=== PATIENT | male | born 1970 | race Caucasian/White ===

== ENCOUNTER 2016-03-11 07:00 | Day surgery (SDC) | payer MEDICAID, MEDICARE ==
[~2016-03-11 07:00] MED LIST: ACET325T51 PO; GLPZ5T PO; HYDR-4003 PO; INSLIS SUBQ; LISI40TA PO; METF-495 PO; PRAV20TA2 PO
--- NOTE | 2016-03-11 09:56 | NUR ---
No show for 03/11/16 appointment: Patient called. 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 Message left requesting call back.
--- NOTE | 2016-03-11 11:26 | NUR ---
Patient arrived for appointment today. TPA not needed: Patient arrived ambulatory to [facility] [place] room 245. PICC line evaluated by IV therapy. PICC line draws blood with no problem. Dr. Jimenez called and notified. No need for TPA infusion to de clot. Patient discharged home ambulatory in stable condition. Infusion solutions to continue with home care.
[2016-06-07] MEDS ORDERED: GLIP10TA10 PO (15:53)
[2016-06-07] MEDS ORDERED: PRAV20TA2 PO (15:53)
[2016-06-07] MEDS ORDERED: LISI40TA PO (15:53)
[2016-06-07] MEDS ORDERED: METF-496 PO (15:53)
[2016-06-07] MEDS ORDERED: INSLIS SUBQ (15:53)
== END 2016-03-20 23:59 ==
LOC: MOCO 07:00
PROVIDERS: ATTEND Podiatrist
DX: M86.9 Osteomyelitis, unspecified (principal); Z53.8 Procedure and treatment not carried out for other reasons

== ENCOUNTER 2016-03-25 15:42 | Day surgery (SDC) | payer MEDICARE, MEDICAID ==
--- NOTE | 2016-03-25 16:49 | NUR ---
PICC line discontinued: Orders received to discontinue PICC line. Patient arrived ambulatory to [facility] [place] room 241. PICC line d/c'd by IV therapy. Discharged home ambulatory in stable condition.
[2016-06-07] MEDS ORDERED: METF-496 PO (15:53)
[2016-06-07] MEDS ORDERED: LISI40TA PO (15:53)
[2016-06-07] MEDS ORDERED: INSLIS SUBQ (15:53)
[2016-06-07] MEDS ORDERED: GLIP10TA10 PO (15:53)
[2016-06-07] MEDS ORDERED: PRAV20TA2 PO (15:53)
== END 2016-03-25 23:59 | disposition home or self-care (01) ==
LOC: MOCO 15:42
PROVIDERS: ATTEND Podiatrist
DX: M86.8X7 Other osteomyelitis, ankle and foot (principal)

== ENCOUNTER 2016-06-11 07:18 | Day surgery (SDC) | payer MEDICARE, MEDICAID ==
[~2016-06-11] VITALS: Ht 203.2 cm; Wt 128.6 kg
[~2016-06-11 07:18] MED LIST changes: -ACET325T51 PO; +GLIP10TA10 PO; -GLPZ5T PO; -HYDR-4003 PO; -METF-495 PO; +METF-496 PO; +Vancomycin Dose per Pharmacist XX ONE; +Vancomycin Inj 2,000 MG in 0.9% Sodium Chloride 500 ML IV ONE
[2016-06-11] MEDS ORDERED: fentaNYL-PF 50 mCg/mL 2 mL Inj ONE (07:19)
[2016-06-11] MEDS: Lactated Ringer's 1,000 ML IV SCH ×2 (07:26→09:11)
[2016-06-11 07:36] VITALS: BP 156/89; PULSE 95; RESP 16; O2SAT 96
[2016-06-11] MEDS ORDERED: Insulin LISPRO 300 Unit/3 mL Inj ONE (08:09)
[2016-06-11] MEDS ORDERED: Insulin LISPRO 300 Unit/3 mL Inj SUBQ ONE (08:25)
[2016-06-11] MEDS ORDERED: Bupivacaine 0.5%/EPI 50 mL Inj INFILTRATE ONE (09:30)
[2016-06-11] MEDS ORDERED: Bupivacaine-MPF 0.5% 30 mL Inj INFILTRATE ONE (09:30)
[2016-06-11] MEDS ORDERED: fentaNYL-PF 50 mCg/mL 2 mL Inj IVPUSH PRN (09:40)
[2016-06-11] MEDS ORDERED: Lactated Ringer's 500 ML IV PRN (09:40)
[2016-06-11] MEDS ORDERED: Dexamethasone 4 mg/mL Inj IVPUSH PRN (09:40)
[2016-06-11] MEDS ORDERED: Ondansetron 2 mg/mL 2 mL Inj IVPUSH PRN (09:40)
[2016-06-11] MEDS ORDERED: Lactated Ringer's 1,000 ML IV SCH (09:40)
[2016-06-11] MEDS ORDERED: EPHEDrine Sulfate 50 mg/mL Inj IVPUSH PRN (09:40)
[2016-06-11] MEDS ORDERED: Labetalol 5 mg/mL 4 mL Inj IV PRN (09:40)
[2016-06-11] MEDS ORDERED: HYDROmorphone 1 mg/mL Inj IVPUSH PRN (09:40)
[2016-06-11] MEDS ORDERED: MetoCLOpramide 5 mg/mL 2 mL Inj IVPUSH PRN (09:40)
[2016-06-11] MEDS ORDERED: Phenylephrine 10,000 mCg/mL Inj IVPUSH PRN (09:40)
[2016-06-11] MEDS ORDERED: Atropine 0.4 mg/mL Inj IVPUSH PRN (09:40)
--- NOTE | 2016-06-11 09:40 | PCM.HPANE ---
Patient Data Surgeon Admitting Provider: Attending Provider:Giselle Jimenez DPM Primary Care Physician:Criss Woods MD Other Provider:PierreocAzaleaAnderson Anesthesia Reason for Visit Left Foot Diabetic Ulcer W/Deformity Ht/WT & BMI Height (Feet): 6 Height (Inches): 8 Weight (Kilograms): 128.6 Body Mass Index 31.00 Allergies Coded Allergies: Penicillins (Verified Allergy, Severe, SWELLING, 01/31/16) amoxicillin (Verified Allergy, Severe, swelling, 01/31/16) lidocaine (Verified Allergy, Severe, Anaphylaxis, 01/31/16) chlorhexidine (Verified Allergy, Unknown, 01/31/16) Uncoded Allergies: CHLOROPREP (Adverse Reaction, Severe, SKIN REACTION, 11/13/15) Past Anesthesia History Anesthesia History: Denies:: Anesthesia Reactions, Malignant Hyperthermia Diabetes History Hx Diabetes?: Yes Type of Diabetes: Type II Glycemic Control: Insulin & Oral Medication Current Bedside Blood Glucose: 280 MRSA MRSA: Yes (hx of, prone to) Medications Hypertension Medication: Yes Home Meds Incl Beta Brian: No Reported Medications Metformin ER 1,000 Mg Tablet1,000 Mg PO BID Ref 0 06/07/16 Pravastatin 20 Mg Cisktz47 Mg PO DAILY Ref 0 06/07/16 Glipizide 10 Mg Fhsfhe01 Mg PO BID 30 Days 06/07/16 Lisinopril 40 Mg Leueop67 Mg PO DAILY 30 Days Ref 0 06/07/16 Discontinued Reported Medications Insulin Human Lispro (HumaLOG U100 Insulin Vial)100 Unit/Ml Unit1 Unit SUBQ prn PRN sliding scale BS #1 VIAL Ref 0 Check blood sugars before meals and at bedtime. Use correction factor only before meals. Blood Sugar Lispro Correction: <151, 0 units; 151-175, 1 unit; 176-200, 2 units; 201-225, 3 units; 226-250, 4 units; 251-275, 5 units; 276-300, 6 units; 301-325, 7 units; 326-350, 8 units; 351-375, 9 units; 376-400, 10 units; >400, 12 units. 06/07/16 Acetaminophen 325 Mg Rythmt113 Mg PO Q4H PRN AD Ref 0 12/27/15 Hydrocodone-Acetaminophen 5-325 mg 1 Each Tablet1-2 Tablet PO Q6H PRN For Pain Ref 0 11/13/15 Pravastatin 20 Mg Wlddtp01 Mg PO DAILY 01/30/15 Lisinopril 40 Mg Beamtg01 Mg PO DAILY 01/30/15 Discontinued Scripts Insulin Human Lispro (HumaLOG U100 Insulin Vial)100 Unit/Ml Unit SUBQ WMHS 30 Days Check blood sugars before meals and at bedtime. Use correction factor only before meals. Blood Sugar Lispro Correction: <151, 0 units; 151-175, 1 unit; 176-200, 2 units; 201-225, 3 units; 226-250, 4 units; 251-275, 5 units; 276-300, 6 units; 301-325, 7 units; 326-350, 8 units; 351-375, 9 units; 376-400, 10 units; >400, 12 units. Prov:Radhames Oglesby DO 02/06/16 Metformin ER 500 Mg Tablet1,000 Mg PO BID #60 Prov:Junior Butler MD 12/30/15 Glipizide 5 Mg Mbjfem69 Mg PO BID #60 TABLET Prov:Junior Butler MD 12/30/15 History History of ENT Problems?: No HEENT History: Denies:: Abnormal Airway Cataracts Difficult Intubation Dysphagia Glaucoma Hearing Problem Sinus Problem TMJ Denture Type: None Teeth Condition: Within Normal Limits Hx of Heart Problems?: Yes Cardiovascular History: Positive for:: Hypertension ( hyperlipidemia) Denies:: Cardiac Surgery Chest Pain Congestive Heart Failure Edema (left foot swollen related to infection) Heart Murmur Irregular Heartbeat Pacemaker Thrombophlebitis Valvular Heart Disease Hx of Respiratory Problem?: No Respiratory History: Positive for:: Pneumonia (hx of) Denies:: Asthma COPD Emphysema Oxygen Administration Tuberculosis Use of C-PAP Machine Hx Neurologic Problems?: Yes Neurological History: Positive for:: CVA Headaches (sometimes) Denies:: Alzheimer's Disease Dementia Dizziness Parkinson's Disease Seizures Hx of GI Problems?: No Hx of Problems?: No Genitourinary History: Denies:: Kidney Stones Urinary Tract Infection Male Hx: Denies:: Prostate Problems Scrotal Mass Testicular Surgery Skin History: Positive for:: History Skin Disorders? (recurrent foot ulcers) Denies:: Pressure Ulcers Hx Musculoskeletal Problems?: Yes Musculoskeletal History: Positive for:: Back Injury (strain muscle hx) Musculoskeletal Trauma (left foot current admission problem- hx multiple foot surgery) Denies:: Joint Replacement Hx of Psycho/Social Problems?: No Hx Surgeries?: Yes (ORIF RT LEG,PARTIAL AMPUTATION TO 1ST & 2ND TOE., 3/4 AMPUTATION TO 3RD TOE) Hx Any Other Health Problems?: Yes Other History: Positive for:: Endocrine Disease (Diabetes Type 2, insulin dependent.) Hospitalization (for diabetic foot infections) Denies:: Cancer Thyroid Disease History Blood Transfusions: Denies:: Blood Transfuse Reaction Blood Transfusions Hx Diabetes: YesBedside Blood Glucose: 280 Hx Alcohol Use: YesHx Substance Use: No Smoking Status: Former Smoker Have You Smoked inLast 12 mo: No Stop/Bang S-Snoring: Do You Snore Loudly: No T-Tired: feel tired, fatigued: No O-Obsered: Observed not breath: No P-Blood Pressure: treated: Yes B- Body Mass Index > 35 kg/m2: Yes A- Age over 50: No G- Gender Male: Yes KRISTIN Risk Assessment: Low Risk, <3 Yes Risk Assessment Category Category 1A: Patient has history of documented sleep apnea, and HAS NOT received any narcotic, sedative or anesthesia administration during this stay. Category 1B: Patient has history of documented sleep apnea, and HAS received any narcotic , sedative or anesthesia administration during this stay Category 2: Patient has SUSPECTED Obstructive Sleep Apnea, and HAS received any narcotic , sedative or anesthesia administration during this stay. Category 3: Patient has SUSPECTED Obstructive Sleep Apnea and HAS NOT received narcotic, sedative or anesthesia administration during this stay. Category 4: Outpatient in Procedural Areas with known sleep apnea or who screen positive for High Risk via the STOP/BANG questionnaire. Exam Exam Vital Signs Vital Signs Date Time Temp Pulse Resp B/P Pulse Ox O2 Delivery O2 Flow Rate FiO2 06/11/16 07:36 36.5 95 16 156/89 96 Room Air General Appearance: Alert, Oriented X3, Cooperative HEENT/AIRWAY: MP 2 Lungs: Clear to Auscultation Heart: Exam Unremarkable Meds/Labs/Diagnostics Admission Meds Current Medications Pharmacy Consult 1 ea 1 ea PREOP ONCE XX Last administered on 06/11/16 08:02 ; Start 06/11/16 at 06:00; Stop 06/11/16 at 06:01; Status DC Lactated Ringer's (Lr) 1,000 ml @ 120 mls/hr Q8H20M IV Last administered on 07:26; Start 06/11/16 at 05:00; Stop 06/11/16 at 13:19 Insulin Human Lispro (HumaLOG Insulin Inj) 300 unit RoosterBiK-MED ONCE .ROUTE Last administered on 06/11/16 08:15; Start 06/11/16 at 08:09; Stop 06/11/16 at 08:11 ; Status DC Bedside Blood Glucose: 280 Plan Impression Patient chart reviewed, patient interviewed and anesthestic plan with risks, benefits, and alternatives discussed, and informed consent obtained. ASA Physical Status: ASA3 Severe Disease Anesthetic Plan: MAC Bene/Risks/Altern/Consents: Yes HP Complete Prior to Induction: Yes Antonino Quigley DO Jun 11, 2016 08:18
[2016-06-11] MEDS ORDERED: HYDROcodone-APAP 5-325 mg Tablet PO PRN (11:05)
[2016-06-11] MEDS ORDERED: HYDR-3825 PO (11:05)
[2016-06-11 11:07] VITALS: BP 120/79; PULSE 78; RESP 16; O2SAT 95
[2016-06-11] MEDS ORDERED: DOXY100C2 PO (11:07)
[2016-06-11] MEDS ORDERED: RIFA300C4 PO (11:07)
--- NOTE | 2016-06-11 11:17 | PCM.PODPO ---
Podiatry Operative Report Date of Service: Jun 11, 2016 Date of Service Jun 11, 2016 Pre Operative Diagnosis Chronic left foot ulcer associated with forefoot equinus and 3rd and 4th metatarsal head prominences Post Operative Diagnosis Chronic left foot ulcer associated with forefoot equinus and 3rd and 4th metatarsal head prominences Procedure Left 3rd and 4th metatarsal osteotomies. Surgeon Surgeon: Giselle Jimenez DPM Assistants: None Indication for Procedure Chronic diabetic ulcer associated with neuropathy and left foot deformity. Findings Prominence associated with the ulceration greatly reduced after shortening osteotomy through the condyles. Details of Procedure Patient was identified in the preop holding area and brought back to the operating room. He was placed on the operating table in supine position. The timeout protocol was completed, the patient's site of surgery confirmed, and IV sedation initiated. The left foot was anesthetized locally with plain bupivacaine, augmented dorsally with bupivacaine with epinephrine. The left foot was prepped and draped in the usual aseptic manner. The incision was made linearly along the 3rd intermetatarsal space on the dorsum of the left foot. It was carried bluntly to the metatarsophalangeal joint capsule of the 3rd toe. The capsule was incised, a dorsal proximal to plantar distal osteotomy was performed with a bone saw and a 7mm segment excised, then fixated with two 2.5mm cannulated partially threaded screws under fluoroscopic guidance. The same was done through the same incision to the 4th metatarsal, removing a 5mm segment. The wound was irrigated. deep structures and capsule repaired with 3-0 Vicryl and skin with 3-0 Prolene. The plantar ulcer was 3cm x 2.8cm in size and was selectively debrided to 0.4cm depth from 0.1cm depth. The rest of the measurements did not change. The dressing consisted of Linus's silk, 4x4 " gauze , Kerlix, and Coban. The patient tolerated it well. He was weaned off of anesthesia and taken to Day Surgery with vital signs stable, left foot vascular status intact. Grafts, Implants: Implants-See Implant Record Complications There were no periprocedural complications identified. Condition Stable Anesthetic Administered: MAC Drains: None Catheters: None Output, Estimated Blood Loss: 20 (ml) Blood Admin during surgery: No Surgical Cast or Splint: Post-op Boot Surgical Specimen Removed: No Specimen sent to Pathology: No Post Operative Plan Weightbearing as tolerated, but minimal frequency over the next two weeks. Postop follow up with me next Friday. PO Rifampin and Doxycycline until then. One additional IV dose of Vancomycin prior to discharge home. Tight blood glucose control today until he leaves in the late afternoon. Giselle Jimenez DPM Jun 11, 2016 11:17
[2016-06-11 11:25] VITALS: BP 125/76; PULSE 72; RESP 16; O2SAT 97
[2016-06-11] MEDS ORDERED: Glucose 40% Oral Gel 15 Gm Tube PO PRN (11:45)
[2016-06-11] MEDS ORDERED: Insulin LISPRO 300 Unit/3 mL Inj SUBQ SCH (12:00)
--- NOTE | 2016-06-11 12:05 | PCM.ANEP1 ---
Post Anesthesia Phase 1 PACU Phase 1 Assessment Date of Service: Jun 11, 2016 Vital Signs Vital Signs Date Time Temp Pulse Resp B/P Pulse Ox O2 Delivery O2 Flow Rate FiO2 06/11/16 11:25 72 16 125/76 97 Room Air 06/11/16 11:07 36.4 78 16 120/79 95 Room Air 06/11/16 07:36 36.5 95 16 156/89 96 Room Air Anesthetic Administered: MAC Level of Alertness: Awake, talking GOFF's with Equal Strength: Yes Pain: No Nausea or Vomiting: No Cardiovascular Function and Hy: Yes Oxygen Delivery: Room Air Lungs: Clear to Auscultation Dermatome Level: T4 (Nipple Line) Complications: No Follow up Care: No Patient Instructions Provided: Yes Antonino Quigley DO Jun 11, 2016 12:05
[2016-06-11] MEDS ORDERED: Vancomycin 1,000mg/200 mL NS IV ONE (14:27)
[2016-06-11] MEDS ORDERED: Vancomycin Inj 1,000 MG in IV Premix 1 EACH IV ONE (22:00)
== END 2016-06-11 23:59 | disposition home or self-care (01) ==
LOC: SAS 07:18
PROVIDERS: ATTEND Podiatrist
DX: E11.621 Type 2 diabetes mellitus with foot ulcer (principal); L97.522 Non-pressure chronic ulcer of other part of left foot with fat layer exposed; L97.512 Non-pressure chronic ulcer of other part of right foot with fat layer exposed; E11.40 Type 2 diabetes mellitus with diabetic neuropathy, unspecified; I10 Essential (primary) hypertension; E78.5 Hyperlipidemia, unspecified; Z79.84 Long term (current) use of oral hypoglycemic drugs; Z89.422 Acquired absence of other left toe(s); Z89.421 Acquired absence of other right toe(s); Z87.891 Personal history of nicotine dependence; Z86.73 Personal history of transient ischemic attack (TIA), and cerebral infarction without residual deficits; Z79.4 Long term (current) use of insulin
CPT/HCPCS: 28308; C1713; J1815; J2250; J3010; J3370; J7120

== ENCOUNTER 2016-07-22 13:05 | Inpatient (IN) | payer MEDICARE ==
[~2016-07-22] VITALS: Ht 203.2 cm; Wt 124.2 kg
[~2016-07-22 13:05] MED LIST changes: +DOXY100C2 PO; +HYDR-3825 PO; -INSLIS SUBQ; +RIFA300C4 PO; -Vancomycin Dose per Pharmacist XX ONE; -Vancomycin Inj 2,000 MG in 0.9% Sodium Chloride 500 ML IV ONE
--- NOTE | 2016-07-22 14:22 | NUR ---
Admit - direct 1300 to 248-2 Pt came in from Dr. Jimenez office for OP abx. Pt not feeling well per report and MD decided to admit pt. Dr Roa notified of admit. Orientated to room and call light. Changed into hospital attire. Pt reports family aware of admit.
[2016-07-22] MEDS ORDERED: HYDROcodone-APAP 10-325 mg PO PRN (15:40)
[2016-07-22 16:16] VITALS: BP 136/78; PULSE 87; RESP 20; O2SAT 97
--- NOTE | 2016-07-22 16:25 | NUR ---
Nausea Pt states "nausea coming back". Text paged , awaiting orders.
[2016-07-22] MEDS ORDERED: Insulin GLARgine 100 Unit/mL Syringe SUBQ ONE (16:49)
[2016-07-22] MEDS ORDERED: Polyethylene Glycol (PEG) 17 Gm Powder PO PRN (16:50)
[2016-07-22] MEDS ORDERED: levoFLOXacin Inj 500 MG in IV Premix 1 EACH IV SCH (16:50)
[2016-07-22] MEDS ORDERED: Pantoprazole 4 mg/mL 10 mL Inj IVPUSH ONE (16:50)
[2016-07-22] MEDS ORDERED: Ondansetron 2 mg/mL 2 mL Inj IVPUSH PRN (16:50)
[2016-07-22] MEDS ORDERED: Vancomycin Dose per Pharmacist XX SCH (16:50)
[2016-07-22] MEDS ORDERED: Glucose 40% Oral Gel 15 Gm Tube PO PRN (16:50)
[2016-07-22] MEDS ORDERED: Alum-Mag Hydrox-Simeth 30 mL Suspension PO PRN (16:50)
[2016-07-22] MEDS ORDERED: Promethazine 50 mg/mL Inj IM PRN (16:55)
[2016-07-22] MEDS: Heparin 5,000 Unit/mL Inj SUBQ SCH (17:07)
[2016-07-22] MEDS ORDERED: Vancomycin Inj 2,000 MG in 0.9% Sodium Chloride 500 ML IV ONE (17:30)
[2016-07-22] MEDS ORDERED: 0.9% Sodium Chloride 250 ML ONE (18:08)
[2016-07-22 18:14] VITALS: PULSE 99
[2016-07-22 18:27] LABS: BASOPHILS % (AUTO) 0.3 % (0-3); EOSINOPHILS % (AUTO) 0.1 % (0-5); MONOCYTES % (AUTO) 6.8 % (4-12); Mean Corpuscular Hemoglobin 29.2 pg (27.0-35.0); Mean Corpuscular Volume 86.3 fL (81-100); NEUTROPHILS % (AUTO) 77.1 % (40-74); Platelet Count 204 bil/L (150-400)
[2016-07-22 18:50] LABS: Magnesium 1.8 mg/dL (1.6-2.6)
[2016-07-22] MEDS: Insulin LISPRO 300 Unit/3 mL Inj SUBQ SCH ×2 (19:24→23:01)
[2016-07-22 20:18] VITALS: BP 127/80; PULSE 92; RESP 16; O2SAT 98
[2016-07-22] MEDS: HYDROcodone-APAP 10-325 mg PO PRN (20:24)
[2016-07-22] MEDS ORDERED: levoFLOXacin Inj 500 MG in IV Premix 1 EACH IV ONE (21:55)
--- NOTE | 2016-07-22 23:12 | CONS ---
[address] [address] CONSULTATION REPORT PATIENT: IVAN MORRISSEY : 1970 MR#: [id number] ADMIT: 07/22/2016 JOB ID: [id number] DATE OF SERVICE: 07/22/[address] Serna for this consult. REASON FOR CONSULT: Left diabetic foot infection, postoperative. HISTORY OF PRESENT ILLNESS: The patient is a 46-year-old gentleman with recurrent diabetic foot infections whom I know from prior visits. He has had diabetes for about seven years but has a very severe peripheral neuropathy which has led to the loss of multiple toes or portions of toes. Earlier, he had the left great toe tuft removed as well as the left 2nd toe in its entirety. This led to some malfunction of the left foot and he eventually underwent osteotomies in May of this year of the metatarsals on the left foot by Dr. Jimenez. The idea was to correct what was a developing inversion of the left foot which made walking difficulty and ulcerations inevitable. This was a very successful surgery, but the patient reports there was some swelling and warmth for which he has been taking oral antibiotics prescribed by Dr. Jimenez over the past several weeks. He is not certain as to what all these oral antibiotics are, but he said one of them turned his urine orange, so I presume that would be rifampin which he was taking in conjunction with another antibiotic he cannot remember. In any event, he has been off and on antibiotics for at least a couple of weeks and battling what seems like an indolent infection in that left distal forefoot at the site of his osteotomies. The patient said this was going along okay until about a day or two ago when he was quite active on the left foot and then developed a wide variety of symptoms including some fever, headache, nausea, malaise, anorexia, and some increasing sensation of pain and pressure inside the left foot. Because of these symptoms, he was evaluated as an outpatient and then admitted as an inpatient today. Unfortunately, I cannot see any of these records yet on the computer, so I am not certain exactly what they saw or what they were thinking about, but the only history I can obtain from the patient this afternoon and this evening. PAST MEDICAL HISTORY: 1. Diabetes x7 years. 2. Dense diabetic neuropathy both feet. 3. Status post multiple foot infections. 4. 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 5. Hypertension. 6. Hyperlipidemia. 7. Status post metatarsal osteotomies, left foot, by Dr. Jimenez in May 2016. SOCIAL HISTORY: The patient is a former smoker. Does not drink alcohol or use illicit drugs. FAMILY HISTORY: Negative for TB in first and second-degree relatives. REVIEW OF SYSTEMS: Was done. The patient has had a bit of a headache but nothing severe. No visual change. No sore throat, odynophagia or dysphagia. The neck has not been stiff neck. No cough, shortness of breath or chest pain. He has had nausea and anorexia for about 36 hours. He has not had diarrhea. There has been no dysuria, urgency, or frequency. He has noticed the swelling in his left forefoot but not the right foot. He says he still has some residual sensation in both feet but they are "fairly numb." Remainder of the review of systems is negative. PHYSICAL EXAMINATION: Reveals an afebrile gentleman. Temperature 37 degrees, pulse 99, respiratory rate 20, blood pressure 136/78. He is saturating well on room air. He is awake, alert, now having dinner actually in his room. Examination of the head reveals no tenderness, no sinus abnormalities. Eyes without conjunctivitis or scleral icterus. Nose is normal. Oral cavity no thrush, hairy leukoplakia or poor dentition. Neck is supple without adenopathy. Lungs quite clear. Cardiac tones regular rate and rhythm without notable murmur. Abdomen soft and nontender without organomegaly. No suprapubic fullness. No Horta catheter is present. No inguinal adenopathy. There is no rash anywhere on his body. No evidence for synovitis. Both lower extremities have peripheral pulses which are perhaps a bit diminished, but he does have posterior tibial and dorsal pedal pulses. Capillary refill is diminished bilaterally but not severely so. He does have quite a significant neuropathy in both his feet and ankles. The left foot is missing the second toe in its entirety and the distal tuft of the great toe. The distal tuft amputation site is well healed. There is an incision which is well healed which butt the site of the osteotomy in his mid left forefoot. Surrounding this area, though, the entire left distal forefoot is swollen and mildly erythematous and quite warm as compared to the right foot. How much of this is postop versus infection is hard to say. Remainder of the physical is unremarkable. LABORATORY DATA: We have sent some labs coming back now. Lab studies include white count 7800, hematocrit 41, platelet count 204. Differential white count 77% segs. His creatinine is 0.66. His LFTs are normal. His lipase is slightly up at 81. Procalcitonin pending. Micro studies include many cultures positive for MRSA dating back to December 2015, with additional cultures in January and March all growing MRSA. This MRSA is clindamycin resistant but quite susceptible to Bactrim, tetracycline, rifampin and linezolid in particular with an NARESH of only 1 for linezolid. We do not have a recent x-ray of the foot. The most recent one was a month ago and showed postsurgical changes from the osteotomies. IMPRESSION: This unfortunate gentleman with many foot and ankle related complications of diabetes presents with swelling of his left forefoot associated with some symptoms consistent with infection including some low-grade fevers, generalized malaise, nausea and anorexia. I suspect based on exam he does have quite a significant infection. The problem is here we have no cultures that I can find dating back to his May osteotomies, and right now the wound is certainly well closed and we have no way to get good cultures. I suspect this will once again be a methicillin-resistant Staphylococcus aureus (MRSA) infection as these have plagued this patient. I note that he has been started on clindamycin and a quinolone, and I think probably that will not be the optimal therapy here as we do not really have much coverage for the MRSA. I also note that he has been placed on vancomycin but I would prefer to limit his exposure to vancomycin which has already been quite substantial as he undoubtedly has some degree of diabetic nephropathy and vancomycin can be difficult to dose and perhaps toxic in his situation. Though experience is a bit more limited, daptomycin may provide a good alternative in this situation. RECOMMENDATIONS: 1. Will change the antibiotics to a combination of daptomycin and levofloxacin which we can give orally, and Flagyl which we can give orally. 2. Nasal MRSA swab will be done and, if that is positive, we will attempt and culture MRSA from the nose in the hopes that the susceptibilities might be useful for us. 3. I will leave the x-rays of the feet and any possible debridement, of course, to Dr. Jimenez. 4. Depending on how the patient does here in the hospital, it may be reasonable to send him home on a combination such as linezolid plus levofloxacin if he improves fairly promptly. 5. I will continue to follow this complex patient with you. Thank you very much for involving me in his care.
[2016-07-23] VITALS (7 sets, daily range): BP systolic 128–135; BP diastolic 77–88; PULSE 82–98; RESP 16–18; O2SAT 95–99
[2016-07-23] MEDS ORDERED: Clindamycin Inj 900 MG in IV Premix 1 EACH IV SCH (00:30)
[2016-07-23] MEDS: Heparin 5,000 Unit/mL Inj SUBQ SCH ×4 (01:20→23:52)
[2016-07-23] MEDS: HYDROcodone-APAP 10-325 mg PO PRN ×6 (01:24→23:52)
--- NOTE | 2016-07-23 06:35 | NUR ---
Pain Pain was well controlled with one [place].
[2016-07-23] MEDS: levoFLOXacin 750 mg Tablet PO SCH (07:17)
--- NOTE | 2016-07-23 07:32 | NUR ---
Left foot Swelling and redness appears to be decreased from yesterday.
--- NOTE | 2016-07-23 08:16 | HP ---
[address] [address] HISTORY AND PHYSICAL PATIENT: IVAN MORRISSEY : 1970 MR#: [id number] ADMIT: 07/22/2016 JOB ID: [id number] PRIMARY CARE PROVIDER: Criss Woods MD MEDICAL FRONT DESK COORDINATOR: Giselle Jimenez DPM ADMISSION INFORMATION: Patient is admitted as a direct admission, inpatient status, orange team. CHIEF COMPLAINT: Pain and swelling left foot. HISTORY OF PRESENT ILLNESS: This is a 46-year-old, white male who has type 2 diabetes not overly well controlled at this time and multiple infections in his feet with amputations in the past. In terms of his left foot he had an ulcer and surgery on that foot in February. This was reoperated I think a month later as one of the metatarsal bones was pushing down and was a new open area there. Since then, the patient has done relatively well over the last few days that left foot got swollen, hot, and tender. He was seen by his egg grader who brought him over to the hospital to start him on outpatient IV antibiotics, but finally the patient agreed to be admitted to the hospital. In addition to the symptoms in his foot he has been having some fever and chills at home, feels tired with some nausea. No chest pain. No shortness of breath. No diarrhea. No abdominal pain. REVIEW OF SYSTEMS: Complete review of systems obtained, all pertinent positives as in HPI above, rest of systems are negative. PAST MEDICAL HISTORY: 1. Type 2 diabetes. 2. Hypertension. 3. Hyperlipidemia. 4. History of MRSA in his foot infections in the past. 5. Recurrent lower extremity infections. MEDICATIONS: 1. Metformin ER 1000 b.i.d. 2. Lisinopril 40 daily. 3. Pravachol 20 at bedtime. 4. Vicodin 5/325 p.r.n. ALLERGIES: 1. PENICILLIN. 2. LIDOCAINE. 3. CHLORHEXIDINE. SOCIAL HISTORY: Patient lives with his . His primary care provider is Dr. Criss Woods. He quit smoking 6 years ago and drinks alcohol in small amounts and only occasionally. FAMILY HISTORY: Positive for diabetes in father, brother, and grandfather. PHYSICAL EXAMINATION: No fever. Heart rate 87, respiratory rate 20, blood pressure 136/78, O2 sats 97% on room air. Patient is alert not in acute distress, but on the other hand not totally comfortable either. Skin is warm and dry. Left foot is missing the 2nd toe. There is redness involving the dorsal aspect of the foot, which has been marked in ink. There is no open sores that I can see. The swelling, redness, and puffiness is on the dorsal aspect, extending up to the ankle and the proximal portion of the big toe to either side also. His right foot is missing the 3rd metatarsal of the 3rd toe. There is no active infections there. Skin otherwise normal. Eyes PERRLA. EOMs intact. Mouth shows adequate hydration. No JVD. Thyroid grossly normal. Cardiac is regular without a murmur. Lungs clear to auscultation and percussion. Abdomen is soft, nonacute, benign. No peripheral edema. Neuro exam is unrevealing. DIAGNOSES: 1. Cellulitis left foot present on admission, active. The patient be started on vancomycin, Levaquin, and clindamycin. Will talk with podiatry about imaging probably a CT scan would be appropriate of the foot. I have requested Infectious Disease consultation. Please note, patient has a history of MRSA in his feet in the past. CBC, procalcitonin will also be obtained. 2. Type 2 diabetes present on admission, active. Will hold patient's metformin at this time. Start him on some Lantus 12 units, correction scale. Make further adjustments depending on his response. 3. Hypertension. Continue patient's lisinopril and Pravachol. 4. Pain management. Vicodin p.r.n. CODE STATUS: Full code. The patient is admitted under inpatient status with expected length of stay greater than 2 midnights due to severity of presenting symptoms. Risk of adverse events and complexity of treatment plan. Date of service for this visit and note is 07/22/2016 PRASHANT
[2016-07-23] MEDS ORDERED: DAPTOmycin Inj 1,000 MG in 0.9% Sodium Chloride 50 ML IV SCH (08:30)
[2016-07-23] MEDS: Insulin LISPRO 300 Unit/3 mL Inj SUBQ SCH ×4 (08:53→21:59)
--- NOTE | 2016-07-23 09:10 | NUR ---
Social Work-initial assessment: Data:See initial assessment. Pt is a 46 y/o male who was admitted on 07/22/16 for cellulitis per H&P. Pt's insurance is [facility] and PCP is Criss Woods MD. EMR reviewed. Pt's readmission score is 5-high risk. SW met with pt to discuss discharge planning, SW role explained. Pt is alert and oriented x3. pt resides at home alone in [facility] where he remains independent with ADLS. Pt uses no DME and drives. Pt has no HH or SNF history. Pt has used [facility] before for IV abx. Pt has no [place] [facility] care insurance or [place] benefits. SW discussed DPOA/advanced directive, pt has not completed this and is not interested in any information. ID to see pt, R/O IV abx needs. SW provided phone number and plan on white board in room. Pt's mother to provide transport home at discharge. SW will continue to follow. Assessment:Pt who is independent at baseline. Plan:Pt to discharge home when medically stable via POV. SW to follow for IV abx needs. SW will continue to follow. GINA Adams Addendum: 07/23/16 at 0914 by DEION RIVERO Amended: Links added.
[2016-07-23] MEDS ORDERED: Insulin GLARgine 100 Unit/mL Syringe SUBQ STA (10:19)
[2016-07-23] MEDS ORDERED: Glucose 40% Oral Gel 15 Gm Tube PO PRN ×2 (10:20→11:50)
--- NOTE | 2016-07-23 10:21 | PROG NOTE ---
[address] [address] PROGRESS NOTE PATIENT: IVAN MORRISSEY : 1970 MR#: [id number] ADMIT: 07/22/2016 JOB ID: [id number] DATE: 07/23/2016 REASON FOR FOLLOW UP: Postoperative left foot infection. Recall that this patient underwent osteotomies to his metatarsals on his left foot to correct a foot deformity back in May. He had a good structure result, but unfortunately seems to have developed a closed space infection within the left foot. Recall that I saw the patient yesterday in consult and started him on antibiotics, but there was nothing to culture in terms of his foot so the only real information we have is a MRSA swab which has turned out to be positive. INTERVAL HISTORY: Overnight the patient did have a fever of 38.2 and some subtle chills. He has no cardiac, pulmonary, or GI symptoms today though he does have a bit of a headache. No significant pain in his left foot. PHYSICAL EXAMINATION: Reveals an afebrile gentleman, temp 37.1, pulse 84, respiratory rate 17, blood pressure 123/83, saturating well on room air. In no acute distress. Awake and alert. Lungs are clear. Cardiac tones, no murmur. Abdomen benign. Left foot slightly less erythema than last night when I first saw the patient. No drainage however. LABORATORIES: Include a white count 7800. Creatinine 0.66. Procalcitonin 0.17. A MRSA swab of the nose is positive, and I have asked the lab to do full susceptibilities which we do not ordinarily do on a nasal swab, but maybe it will give us a clue at least about appropriate outpatient antibiotics. IMPRESSION: This is a patient with postoperative infection related to osteotomies that were done back in May. He had some generalized symptoms prior to admission which seemed to be improving. At this point, our antibiotics include dapto, levo, and Flagyl with the latter two agents being given orally. We have these very broad antibiotics because we have really nothing in the way of culture at this point. RECOMMENDATIONS: 1. Continue with those antibiotics. 2. We have asked the lab for MRSA susceptibilities. 3. Questions about x-rays and debridement will be left to Dr. Jimenez. 4. I hope that we can come up with an oral regimen to send this patient home on in the next day or two, but await additional input from Dr. Jimenez and the podiatry service.
--- NOTE | 2016-07-23 10:30 | PCM.PNMED ---
Subjective Date of Service Jul 23, 2016 Subjective Patient did have fever up to 38.2 last night otherwise no problems. Blood sugars a bit better but still very elevated. Reviewed Dr Sanchez's note, input appreciated. Exam Vital Signs Vital Sign - Last Date Time Temp Pulse Resp B/P Pulse Ox O2 Delivery O2 Flow Rate FiO2 07/23/16 10:21 86 07/23/16 05:58 37.1 17 128/83 96 Room Air Intake and Output 07/22/16 07/22/16 07/23/16 Cumulative From/Thru 15:00 23:00 07:00 07/22/16 16:31 - 07/23/16 05:58 Intake Total 600 ml 1590 ml 2190 ml Balance 600 ml 1590 ml 2190 ml Intake Oral 600 ml 950 ml 1550 ml IV Total 640 ml 640 ml # Voids 1 4 5 # Bowel Movements 0 0 0 Exam Left foot, redness receding quicly from ink butt, swelling down a bit also CV; regular, no murmur Resp; clear GI; soft non acute Lab and Diagnostics Result Diagram: 07/22/16175407/22/161754 Assessment & Plan 1. Cellulitis left foot present on admission, active. -ID changed antibiotics to PO Flagyl, PO levaquin, and IV daptomycin, continue same, Day #2 of antibiotics -defer any operative plans or imaging to podiatry -control blood sugars 2. Type 2 diabetes present on admission, active. -HbA1C = 10.1 -metformin on hold, resume when able -starting patient on Basal Bolus dosing for better glycemic control during this infection -Basal; increase lantus to 18 units today -Nutritional insulin 5 tid ac, and medium correction scale 3. Hypertension, poa, stable -Continue patient's lisinopril and Pravachol. 4. Pain management. -Vicodin p.r.n. VTE Mechanical Devices: Intermittant Pneumatic CD Atul Serna MD Jul 23, 2016 10:30
--- NOTE | 2016-07-23 11:10 | PCM.CHPPOD ---
Subjective Date of service Jul 23, 2016 History of Present Illness Fevers, chills, nausea and vomiting present for 2 days prior to visit with me at the office yesterday. I performed a shortening osteotomy of the left 3rd and 4th metatarsals to get a plantar ulcer to heal. The ulcer healed very quickly, but the 3rd metatarsal osteotomy fixation failed. Although we anticipated that the floating metatarsal head could seat itself in the new position, as it often does in these situations, Isra has been too active on his feet since the surgery and lack of proper immobilization has yielded ongoing irritation by the metatarsal head fragment. The dorsal incision was slower to heal than anticipated and he may have trapped some organisms from the dorsum of the foot as the plantar foot continued to heal. In any case, he came in yesterday with a red, hot, painful left foot. Reason for Consultation Treatment of left foot infection. Allergy Allergies: Coded Allergies: Penicillins (Verified Allergy, Severe, SWELLING, 01/31/16) amoxicillin (Verified Allergy, Severe, swelling, 01/31/16) lidocaine (Verified Allergy, Severe, Anaphylaxis, 01/31/16) chlorhexidine (Verified Allergy, Unknown, 01/31/16) Uncoded Allergies: CHLOROPREP (Adverse Reaction, Severe, SKIN REACTION, 11/13/15) Medications Hydrocodone-Acetaminophen 7.5-325 mg (Hydrocodone-Acetaminophen 7.5-325 mg) 1 Each Tablet 1 TABLET PO Q4H PRN PRN For Pain Lisinopril (Lisinopril) 40 Mg Tablet 40 MG PO DAILY Metformin ER (Metformin ER) 1,000 Mg Tablet 1,000 MG PO BID Pravastatin (Pravastatin) 20 Mg Tablet 20 MG PO HS Past Medical History Surgeries: Yes (ORIF RT LEG,PARTIAL AMPUTATION TO 1ST & 2ND TOE., 3/4 AMPUTATION TO 3RD TOE) Medical History: (1) Tachycardia (2) Hypertension (3) Diabetic peripheral neuropathy (4) Abscess or cellulitis of foot (5) Diabetic infection of left foot (6) Type II diabetes mellitus (7) Osteomyelitis of foot, left, acute (8) 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 (9) Cellulitis (10) Foot ulcer (11) Diabetes mellitus type 2 with neurological manifestations Surgical History: Social History Occupation: disabled Hx Alcohol Use: Yes (occasional) Hx Substance Use: No Hx Tobacco Use: Yes Smoking Status: Former Smoker Podiatry Consult Exam Vital Signs Vital Sign - Last Date Time Temp Pulse Resp B/P Pulse Ox O2 Delivery O2 Flow Rate FiO2 07/23/16 10:21 86 07/23/16 05:58 37.1 17 128/83 96 Room Air Intake and Output 07/22/16 07/22/16 07/23/16 Cumulative From/Thru 15:00 23:00 07:00 07/22/16 16:31 - 07/23/16 05:58 Intake Total 600 ml 1590 ml 2190 ml Balance 600 ml 1590 ml 2190 ml Intake Oral 600 ml 950 ml 1550 ml IV Total 640 ml 640 ml # Voids 1 4 5 # Bowel Movements 0 0 0 Result Diagram: 07/22/16 1755 07/22/16 175 Lab Test 07/22/16 17:55 White Blood Count 7.8th/mm3 (3.8-10.1) Red Blood Count 4.73mil/mm3 (4.40-5.80) Hemoglobin 13.8g/dL (13.8-17.2) Hematocrit 40.8% (41.0-50.0) Mean Corpuscular Volume 86.3fL (81-100) Mean Corpuscular Hemoglobin 29.2pg (27.0-35.0) Mean Corpuscular Hemoglobin Concent 33.8% (32.0-37.0) Red Cell Distribution Width 13.2% (12.3-15.4) Platelet Count 204bil/L (150-400) Neutrophils (%) (Auto) 77.1% (40-74) Lymphocytes (%) (Auto) 15.6% (14-46) Monocytes (%) (Auto) 6.8% (4-12) Eosinophils (%) (Auto) 0.1% (0-5) Basophils (%) (Auto) 0.3% (0-3) Sodium Level 133mEq/L (134-144) Potassium Level 4.0mEq/L (3.5-5.2) Chloride Level 91mEq/L (97-108) Carbon Dioxide Level 25mmol/L (18-29) Blood Urea Nitrogen 10mg/dL (6-24) Creatinine 0.66mg/dL (0.76-1.27) Estimat Glomerular Filtration Rate 139mL/min (>59) Glucose Level 334mg/dL (60-99) Hemoglobin A1c 10.1% (4.8-5.6) Calcium Level 9.4mg/dL (8.5-10.1) Magnesium Level 1.8mg/dL (1.6-2.6) Total Bilirubin 0.8mg/dL (0.0-1.2) Aspartate Amino Transf (AST/SGOT) 14U/L (0-50) Alanine Aminotransferase (ALT/SGPT) 20U/L (0-44) Alkaline Phosphatase 69U/L (25-150) Total Protein 7.1g/dL (6.4-8.4) Albumin 4.5g/dL (3.4-5.0) Lipase 81U/L (13-60) Procalcitonin 0.17ng/mL (0.00-0.08) Thyroid Stimulating Hormone (TSH) 0.591uIU/mL (0.450-4.500) Hold Dennis Top Tube Received (Received) Exam Lower Extremities: Left: Edema localized (entire forefoot) Extremity warm (left foot erythema and intense heat.) Lower Extremity Pulses: Palpable: Left Dorsalis Pedis Left Posterior Tibal Right Dorsalis Pedis Right Posterior Tibal Podiatry WOUND : Wound Location/Description No wound on left foot. Small scab on distal right great toe stump. Additional Information: Partial digital amputations on right foot, left 2nd toe amputation on left. Dorsal incisions healed. Small area of fluctuance on dorsum of the 3rd/4th MTP joint. Assessment & Plan Problems: (1) Abscess or cellulitis of foot Plan: Demarcating cellulitis to possible dorsal left foot abscess after 24 hours of IV antibiotics. I will get Xrays of the left foot today to guide and I& D. MRI and bone scan would be too sensitive, not specific enough and not helpful. Once I review the Xrays, I will make a treatment plan for I&D, if necessary. I anticipate that tomorrow morning. I doubt he will need to go to the OR, unless bone debridement is imminent. I will contact the primary team with my plan this afternoon. Status: Acute ICD Code: L03.119 VTE Mechanical Devices: Intermittant Pneumatic CD Giselle Jimenez DPM Jul 23, 2016 11:10
[2016-07-23] MEDS: DAPTOmycin Inj 1,000 MG in 0.9% Sodium Chloride 50 ML IV SCH (11:53)
--- NOTE | 2016-07-23 12:37 | NUR ---
sliding scale typed up medium dose scale from orders. Reviewed with patient after he completed his meal and asked what he would take. He was able to understand the nutritional dosing + sliding scale and gave correct answer. continue to review.
--- NOTE | 2016-07-23 12:46 | DRSVH ---
PROCEDURE: X-RAY LEFT FOOT COMPLETE, MINIMUM THREE VIEWS ([id number]) INDICATIONS: Evaluate osteotomy/possible abscess TECHNIQUE: 3 views of the foot were acquired. COMPARISON: [facility], CR, XR FOOT MIN 3VW WT [place] LT, 03/06/2016, 14:41. [facility], CR, XR FOOT 3VW LT, 04/05/2016, 11:44. [facility], CR, XR FOOT 3VW LT, , 10:04. FINDINGS: Bones: Previous amputation of the second digit from the distal second metatarsal shaft level. Osteot omies involving the third and fourth metatarsal bones redemonstrated with surgical fixation screws in unchanged position. There has been slight interval lateral displacement of the fourth distal bony f ragment at the osteotomy site. There is abnormal osteolucency seen at the osteotomy sites as well as significant adjacent periosteal reaction suspicious for osteomyelitis. Soft tissues: No tibiotalar joint effusion. Achilles tendon appears normal. IMPRESSION: 1. Postsurgical changes as above. There is abnormal cortical lucency, irregularity as well as exubera nt periosteal reaction at the osteotomy sites of the distal third and fourth metatarsals, suspicious for osteomyelitis. Recommend clinical correlation and followup. 2. Resection of the second toe. Dictated by: Clovis Bojorquez Brie Interpreted: Charisma Garcia MD on 07/23/2016 at 12:41 Transcribed by: RAJ on 07/23/2016 at 12:46 Approved by: Charisma Garcia M.D. on 07/24/2016 at 9:54
--- NOTE | 2016-07-23 18:40 | NUR ---
Diabetes/pain/surgery Pt understands nutritional/BS coverage. Pain relieved with 1 norco x2. Plan: Dr Jimenez called and stated that pt will be going to the OR tomorrow 0730. To be NPO after midnight. Pt notified.
[2016-07-24] VITALS (12 sets, daily range): BP systolic 104–147; BP diastolic 59–97; PULSE 61–89; RESP 11–23; O2SAT 94–99
[2016-07-24] MEDS: HYDROcodone-APAP 10-325 mg PO PRN ×4 (04:37→21:53)
--- NOTE | 2016-07-24 05:17 | NUR ---
NPO/Pain Pt NPO at midnight. Pt pain well controlled throughout night.
[2016-07-24] MEDS ORDERED: Propofol 10,000 mCg/mL 20 mL Inj ONE (06:39)
[2016-07-24] MEDS ORDERED: Ketamine 10 mg/mL 20 mL Inj ONE (06:39)
[2016-07-24] MEDS ORDERED: Bupivacaine-MPF 0.25% 30 mL Inj INFILTRATE ONE (07:20)
[2016-07-24] MEDS ORDERED: Lactated Ringer's 500 ML IV PRN (07:41)
[2016-07-24] MEDS ORDERED: Lactated Ringer's 1,000 ML IV SCH (07:41)
--- NOTE | 2016-07-24 07:41 | PCM.HPANE ---
Patient Data Surgeon Admitting Provider:Atul Serna MD Attending Provider:Atul Serna MD Primary Care Physician:Criss Woods MD Other Provider: Reason for Visit Cellulitis Left Foot Ht/WT & BMI Height (Feet): 6 Height (Inches): 8.00 Body Mass Index 0.00 Allergies Coded Allergies: Penicillins (Verified Allergy, Severe, SWELLING, 01/31/16) amoxicillin (Verified Allergy, Severe, swelling, 01/31/16) lidocaine (Verified Allergy, Severe, Anaphylaxis, 01/31/16) chlorhexidine (Verified Allergy, Unknown, 01/31/16) Uncoded Allergies: CHLOROPREP (Adverse Reaction, Severe, SKIN REACTION, 11/13/15) Past Anesthesia History Anesthesia History: Denies:: Abnormal Airway, Anesthesia Reactions, Difficult Intubation, Malignant Hyperthermia Diabetes History Hx Diabetes?: Yes Type of Diabetes: Type II Glycemic Control: Insulin & Oral Medication Current Bedside Blood Glucose: 255 MRSA MRSA: Yes (hx of, prone to) Medications Hypertension Medication: Yes Home Meds Incl Beta Brian: No Active Scripts Hydrocodone-Acetaminophen 7.5-325 mg 1 Each Tablet1 Tablet PO Q4H PRN For Pain # 40 TABLET Ref 0 Prov:Diane Jimeneza S DPM 06/11/16 Reported Medications Metformin ER 1,000 Mg Tablet1,000 Mg PO BID Ref 0 06/07/16 Pravastatin 20 Mg [id number] Mg PO HS Ref 0 06/07/16 Lisinopril 40 Mg [id number] Mg PO DAILY 30 Days Ref 0 06/07/16 Discontinued Reported Medications Glipizide 10 Mg [id number] Mg PO BID 30 Days 06/07/16 Discontinued Scripts Rifampin 300 Mg [id number] Mg PO BID #20 CAPSULE Prov:Pea, Giselle S DPM 06/11/16 Doxycycline Hyclate 100 Mg [id number] Mg PO BID #20 CAPSULE Prov:Pea, Giselle S DPM 06/11/16 History History of ENT Problems?: No HEENT History: Denies:: Abnormal Airway Cataracts Difficult Intubation Dysphagia Hearing Problem Sinus Problem TMJ Denture Type: None Teeth Condition: Within Normal Limits Hx of Heart Problems?: Yes Cardiovascular History: Positive for:: Hypertension ( hyperlipidemia) Denies:: Cardiac Surgery Chest Pain Congestive Heart Failure Edema (left foot swollen related to infection) Heart Murmur Irregular Heartbeat Pacemaker Thrombophlebitis Valvular Heart Disease Hx of Respiratory Problem?: Yes Respiratory History: Denies:: Asthma COPD Emphysema Oxygen Administration Pneumonia (reports no history of pna) Tuberculosis Use of C-PAP Machine Hx Neurologic Problems?: Yes Neurological History: Positive for:: CVA Headaches (sometimes) Denies:: Alzheimer's Disease Dementia Dizziness Parkinson's Disease Seizures Hx of GI Problems?: No Hx of Problems?: No Genitourinary History: Denies:: Kidney Stones Urinary Tract Infection Male Hx: Denies:: Prostate Problems Scrotal Mass Testicular Surgery Skin History: Positive for:: History Skin Disorders? (recurrent foot ulcers) Denies:: Pressure Ulcers Other Skin Pertinent History: left foot infection Hx Musculoskeletal Problems?: Yes Musculoskeletal History: Positive for:: Back Injury (strain muscle hx) Musculoskeletal Trauma (left foot current admission problem- hx multiple foot surgery) Denies:: Joint Replacement Hx of Psycho/Social Problems?: No Psycho Social History: Denies:: Anxiety Bipolar Disorder Hx Depression Suicide Attempt Hx Surgeries?: Yes (ORIF RT LEG,PARTIAL AMPUTATION TO 1ST & 2ND TOE., 3/4 AMPUTATION TO 3RD TOE) Hx Any Other Health Problems?: Yes Other History: Positive for:: Endocrine Disease (Diabetes Type 2, insulin dependent.) Hospitalization (for diabetic foot infections) Denies:: Cancer Thyroid Disease History Blood Transfusions: Positive for:: Accept Blood Products? Denies:: Blood Transfuse Reaction Blood Transfusions Hx Diabetes: YesBedside Blood Glucose: 255 Occupation: disabled Hx Alcohol Use: Yes (occasional)Hx Substance Use: No Smoking Status: Former Smoker Have You Smoked inLast 12 mo: NoApprox How Many Cigarettes/day: 1 1/2 ppd Stop/Bang Treated for Sleep Apnea?: No Do You Have a CPAP Machine?: No S-Snoring: Do You Snore Loudly: No T-Tired: feel tired, fatigued: No O-Obsered: Observed not breath: No P-Blood Pressure: treated: Yes B- Body Mass Index > 35 kg/m2: No A- Age over 50: No N- Neck Large Circumference: No G- Gender Male: Yes KRISTIN Total Score: 2 KRISTIN Risk Assessment: Low Risk, <3 Yes Risk Assessment Category Category 1A: Patient has history of documented sleep apnea, and HAS NOT received any narcotic, sedative or anesthesia administration during this stay. Category 1B: Patient has history of documented sleep apnea, and HAS received any narcotic , sedative or anesthesia administration during this stay Category 2: Patient has SUSPECTED Obstructive Sleep Apnea, and HAS received any narcotic , sedative or anesthesia administration during this stay. Category 3: Patient has SUSPECTED Obstructive Sleep Apnea and HAS NOT received narcotic, sedative or anesthesia administration during this stay. Category 4: Outpatient in Procedural Areas with known sleep apnea or who screen positive for High Risk via the STOP/BANG questionnaire. Exam Exam Vital Signs Vital Signs Date Time Temp Pulse Resp B/P Pulse Ox O2 Delivery O2 Flow Rate FiO2 07/24/16 04:40 36.7 61 18 124/85 98 Room Air 07/23/16 23:55 36.6 82 18 129/88 96 Room Air General Appearance: Alert, Oriented X3, Cooperative, No Acute Distress HEENT/AIRWAY: MP 2 Lungs: Clear to Auscultation, Normal Air Movement Heart: Exam Unremarkable, Regular Rate/Rhythm, No Murmurs/Rubs/Gallops Meds/Labs/Diagnostics Admission Meds Current Medications Lisinopril 40 mg 40 mg DAILY PO Last administered on 07/23/16 07:49; Start 07/23 at 08:30 Daptomycin/Sodium Chloride (Cubicin Inj/ Normal Saline) 50 ml @ 100 mls/hr Q24H IV Last administered on 07/23/16 11:53; Start 07/23/16 at 12:00 Insulin Human Lispro (HumaLOG Insulin Inj) Nutritional Dose to be given pr... [facility] SUBQ Last administered on 07/23/16 21:59; Start 07/23/16 at 12:00 Bedside Blood Glucose: 255 Labs Test 07/22/16 17:55 White Blood Count 7.8th/mm3 (3.8-10.1) Red Blood Count 4.73mil/mm3 (4.40-5.80) Hemoglobin 13.8g/dL (13.8-17.2) Hematocrit 40.8% (41.0-50.0) Mean Corpuscular Volume 86.3fL (81-100) Mean Corpuscular Hemoglobin 29.2pg (27.0-35.0) Mean Corpuscular Hemoglobin Concent 33.8% (32.0-37.0) Red Cell Distribution Width 13.2% (12.3-15.4) Platelet Count 204bil/L (150-400) Neutrophils (%) (Auto) 77.1% (40-74) Lymphocytes (%) (Auto) 15.6% (14-46) Monocytes (%) (Auto) 6.8% (4-12) Eosinophils (%) (Auto) 0.1% (0-5) Basophils (%) (Auto) 0.3% (0-3) Sodium Level 133mEq/L (134-144) Potassium Level 4.0mEq/L (3.5-5.2) Chloride Level 91mEq/L (97-108) Carbon Dioxide Level 25mmol/L (18-29) Blood Urea Nitrogen 10mg/dL (6-24) Creatinine 0.66mg/dL (0.76-1.27) Estimat Glomerular Filtration Rate 139mL/min (>59) Glucose Level 334mg/dL (60-99) Hemoglobin A1c 10.1% (4.8-5.6) Calcium Level 9.4mg/dL (8.5-10.1) Magnesium Level 1.8mg/dL (1.6-2.6) Total Bilirubin 0.8mg/dL (0.0-1.2) Aspartate Amino Transf (AST/SGOT) 14U/L (0-50) Alanine Aminotransferase (ALT/SGPT) 20U/L (0-44) Alkaline Phosphatase 69U/L (25-150) Total Protein 7.1g/dL (6.4-8.4) Albumin 4.5g/dL (3.4-5.0) Lipase 81U/L (13-60) Procalcitonin 0.17ng/mL (0.00-0.08) Thyroid Stimulating Hormone (TSH) 0.591uIU/mL (0.450-4.500) Hold Dennis Top Tube Received (Received) Plan Impression Patient chart reviewed, patient interviewed and anesthestic plan with risks, benefits, and alternatives discussed, and informed consent obtained. ASA Physical Status: ASA3 Severe Disease (unstable diabetes with complications) Anesthetic Plan: GA Bene/Risks/Altern/Consents: Yes HP Complete Prior to Induction: Yes Sinan Toro MD Jul 24, 2016 07:41
[2016-07-24] MEDS ORDERED: Ondansetron 2 mg/mL 2 mL Inj IVPUSH PRN (07:45)
[2016-07-24] MEDS ORDERED: fentaNYL-PF 50 mCg/mL 2 mL Inj IVPUSH PRN (07:45)
[2016-07-24] MEDS ORDERED: EPHEDrine Sulfate 50 mg/mL Inj IVPUSH PRN (07:45)
[2016-07-24] MEDS ORDERED: Phenylephrine 10,000 mCg/mL Inj IVPUSH PRN (07:45)
[2016-07-24] MEDS ORDERED: Bupivacaine-MPF 0.5% W/EPI 30 mL Inj INFILTRATE ONE (07:56)
[2016-07-24] MEDS: Insulin LISPRO 300 Unit/3 mL Inj SUBQ SCH ×4 (08:00→21:57)
--- NOTE | 2016-07-24 08:40 | PCM.PODPO ---
Podiatry Operative Report Date of Service: Jul 24, 2016 Date of Service Jul 24, 2016 Pre Operative Diagnosis Infected bone and hardware, left foot Post Operative Diagnosis Infected bone and hardware, left foot Procedure Excision of infected bone and hardware, left foot Surgeon Surgeon: Giselle Jimenez DPM Assistants: None Indication for Procedure Infection, failed oral antibiotics, postop infected hardware Findings Abscess formation on the dorsal aspect of the fourth metatarsophalangeal joint with complete fragmentation of the metatarsal head and floating hardware. Loose hardware in the third metatarsal with bone fragmentation distal and proximal to it. Significant amounts of scar tissue and interspersed with calcium deposits, consistent with periosteal reaction and, or bone callus formation. Details of Procedure The patient was identified in the preoperative holding area and brought back to the operating room. He was placed on the operating table in supine position. The timeout protocol was completed in the patient's left foot anesthetized with 0.25% Marcaine plain. General anesthesia was initiated, left foot was prepped and draped in usual aseptic manner. An incision was made on the dorsal aspect of the left foot through the previous scar. Significant thickened scar tissue was interspersed between tendons, joint capsule, bone fragments. Normal anatomy was not encountered in this area. Remnants of the third metatarsal head were excised to the best of my ability, it from the surrounding scar tissue, the hardware was excised with a rongeur due to the fact that the bone was too soft. The fourth metatarsal head the remnant was only the cartilaginous cap and dark yellow purulence. All 4 screws that were previously inserted during the osteotomy procedure were excised with ease due to bone fragmentation. This was irrigated a sample of bone and abscess fluid was sent for culture and sensitivities. Irrigation contains gentamicin and normal saline. The remaining portion of the soft tissue that appeared necrotic was excised with scissors and a rongeur. After thorough irrigation with 1 L of normal saline with gentamicin, partial closure was done with 3-0 Prolene and the area of abscess was packed with half-inch iodoform gauze. The rest of the dressing consisted of Meeks silk, saline moistened 4 x 4 gauze and fluffs, Kerlix and Huan wrap. The patient was transported back to the inpatient floor with vital signs stable and the vascular status to the left foot intact. Grafts, Implants: None Complications There were no periprocedural complications identified. Condition Stable Anesthetic Administered: GA Drains: None Catheters: None Output, Estimated Blood Loss: 20 (ml) Blood Admin during surgery: No Surgical Cast or Splint: None Surgical Specimen Removed: Yes Specimen sent to Pathology: Yes Surgical Specimen description: Bone and abscess contents for culture and sensitivities, left foot Post Operative Plan The patient will require at least 48 hours of only touchdown weightbearing but mostly bed rest. Further infusions of daptomycin with additional by mouth antibiotics, per Dr. Nicole's recommendation, should be continued. By Friday morning, we should get the culture and sensitivities finalized. I cannot be sure that all of the infected bone has been removed, but clinically we should find out in the next few days if he responds well with ongoing antibiotics. If he fails the current course of IV antibiotics but following this procedure, he is only other option is a more proximal amputation. I will be out of the area tomorrow, and Dr. Pelletier will be taking over in my absence. Giselle Jimenez DPM Jul 24, 2016 08:40
[2016-07-24] MEDS ORDERED: Insulin LISPRO 300 Unit/3 mL Inj IV ONE (08:45)
--- NOTE | 2016-07-24 08:50 | PCM.ANEP1 ---
Post Anesthesia PACU Phase 1 Assessment Vital Signs Vital Signs Date Time Temp Pulse Resp B/P Pulse Ox O2 Delivery O2 Flow Rate FiO2 07/24/16 08:35 78 11 104/59 99 Simple Mask 10 07/24/16 08:30 36.3 79 16 107/61 99 Simple Mask 10 07/24/16 04:40 36.7 61 18 124/85 98 Room Air Anesthetic Administered: GA Level of Alertness: Sleepy, easy to arouse GOFF's with Equal Strength: Yes Pain: No Nausea or Vomiting: No CV Function & Hydration Stable: Yes Airway Device: none Oxygen Delivery: Simple Mask Lungs: Clear to Auscultation, Normal Air Movement Dermatome Level: Full Sensation PACU Phase 2 Assessment Complications: No Follow up Care: No Patient Instructions Provided: N/A Sinan Toro MD Jul 24, 2016 08:49
--- NOTE | 2016-07-24 09:17 | NUR ---
[facility] [place] post[place] Received patient back via gurfarrukh, report given by Priya. A/O x4 denies any pain at this time, left foot covered with wrap, no bleeding noted. Patient will be on 48 hours touchdown only wt bearing mostly bed rest. Will continue to monitor.
[2016-07-24] MEDS: levoFLOXacin 750 mg Tablet PO SCH (11:03)
[2016-07-24] MEDS: Heparin 5,000 Unit/mL Inj SUBQ SCH ×2 (11:04→19:35)
[2016-07-24] MEDS: DAPTOmycin Inj 1,000 MG in 0.9% Sodium Chloride 50 ML IV SCH (12:05)
--- NOTE | 2016-07-24 13:30 | PROG NOTE ---
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 INTERVAL HISTORY: The patient remains free of fevers, chills or sweats. He actually reports he is feeling better but today he was taken to the operating room for evaluation of his metatarsals and it was found that he had an abscess involving the dorsal aspect of the 4th metatarsophalangeal joint with fragmentation of the metatarsal head and floating hardware. Also found was loose hardware in the 3rd metatarsal with bone fragmentation. The appropriate cultures were taken and the patient has now returned to the bear and is stable. At this point, we are tentatively planning to continue with probably a fairly long course of aggressive antibiotic therapy depending on the cultures with hopes of salvaging his entire foot. As mentioned today the patient is free of fevers, chills, sweats, pulmonary or GI symptoms. PHYSICAL EXAMINATION: Reveals an afebrile gentleman, in no acute distress. Temperature 36.4, pulse 74, respiratory rate 18, blood pressure 120/85. He is in no acute distress. He is awake and alert. His lungs are clear. Cardiac tones without murmur. Abdomen benign. His left foot is in a large postop dressing which we did not remove for obvious reasons. His last white count was 7800, LFTs normal. Procalcitonin 0.17. Creatinine 0.66. His nasal PCR is positive for MRSA. The abscess cultures from today have rare polys and no organisms, but we do anticipate growth. IMPRESSION: Unfortunately this patient has quite an extensive infection of his left dorsal foot which sounds as if it involves both osteomyelitis as well as an abscess. The MRSA is likely going to be a pathogen here though we do not have proof yet. RECOMMENDATIONS: 1. Will continue with our current antibiotics which include high-dose daptomycin as well as Flagyl and levofloxacin by the oral route. 2. Depending on what the final cultures show, will modify her antibiotics accordingly.
--- NOTE | 2016-07-24 16:25 | PCM.PNMED ---
Subjective Date of Service Jul 24, 2016 Subjective Underwent surgicl procedure on foot, uneventful. We will be continueing current antibiotis and await culture results. Despite adding basal bolus insulin blood sugars still high. Exam Vital Signs Vital Sign - Last Date Time Temp Pulse Resp B/P Pulse Ox O2 Delivery O2 Flow Rate FiO2 07/24/16 11:00 36.4 74 18 120/85 96 Room Air 07/24/16 08:47 10 Intake and Output 07/23/16 07/23/16 07/24/16 Cumulative From/Thru 15:00 23:00 07:00 07/22/16 16:31 - 07/24/16 05:01 Intake Total 970 ml 760 ml 3920 ml Balance 970 ml 760 ml 3920 ml Intake Oral 900 ml 750 ml 3200 ml IV Total 70 ml 10 ml 720 ml # Voids 4 4 13 # Bowel Movements 0 1 1 Exam Left foot, clean bandage in place not removed CV; regular, no murmur Resp; clear GI; soft non acute No JVD or edema Lab and Diagnostics Result Diagram: 07/22/16175407/22/161754 Assessment & Plan 1. Acute Cellulitis and Osteomyelitis left foot present on admission, active. -continue with PO Flagyl, PO levaquin, and IV daptomycin, Day #3 of antibiotics, await culture results -control blood sugars 2. Type 2 diabetes present on admission, active. -HbA1C = 10.1 -resume metformin today -starting patient on Basal Bolus dosing for better glycemic control during this infection -Basal; increase lantus to 25 units today -Nutritional insulin 8 tid ac, and medium correction scale -additional coverage if Blood sugar greater the 250 90 minutes later 3. Hypertension, poa, stable -Continue patient's lisinopril and Pravachol. 4. Pain management. -Vicodin p.r.n. VTE Mechanical Devices: Intermittant Pneumatic CD Atul Serna MD Jul 24, 2016 16:25
[2016-07-24] MEDS ORDERED: Insulin GLARgine 100 Unit/mL Syringe SUBQ STA (16:28)
[2016-07-25] MEDS: Heparin 5,000 Unit/mL Inj SUBQ SCH ×3 (03:12→17:00)
[2016-07-25] MEDS: HYDROcodone-APAP 10-325 mg PO PRN ×4 (03:12→21:14)
[2016-07-25 05:15] VITALS: PULSE 91
[2016-07-25 06:21] VITALS: BP 117/79; PULSE 72; RESP 17; O2SAT 100
--- NOTE | 2016-07-25 06:32 | NUR ---
Blood Glucose pt blood glucose tonight within target less than 250mg/dl.
[2016-07-25 06:36] LABS: BASOPHILS % (AUTO) 0.3 % (0-3); EOSINOPHILS % (AUTO) 2.2 % (0-5); MONOCYTES % (AUTO) 9.9 % (4-12); Mean Corpuscular Hemoglobin 29.1 pg (27.0-35.0); Mean Corpuscular Volume 87.1 fL (81-100); NEUTROPHILS % (AUTO) 52.6 % (40-74); Platelet Count 242 bil/L (150-400)
[2016-07-25] MEDS: levoFLOXacin 750 mg Tablet PO SCH (07:46)
[2016-07-25 08:00] VITALS: PULSE 104
[2016-07-25] MEDS: Insulin LISPRO 300 Unit/3 mL Inj SUBQ SCH ×4 (08:42→22:00)
[2016-07-25 10:00] VITALS: BP 120/78; PULSE 71; RESP 18; O2SAT 96
--- NOTE | 2016-07-25 11:26 | PROG NOTE ---
[address] [address] PROGRESS NOTE PATIENT: IVAN MORRISSEY : 1970 MR#: [id number] ADMIT: 07/22/2016 JOB ID: [id number] DATE: 07/25/2016 INFECTIOUS DISEASE FOLLOW UP NOTE: REASON FOR FOLLOWUP: Infection left foot involving osteomyelitis. INTERVAL HISTORY: Recall this is a gentleman who was admitted with a left forefoot infection a couple months after he had received osteotomies and a screw and hardware placement to correct a foot deformity. The patient was then admitted with left foot swelling. He was taken back to the operating room on July [address] Jimenez for additional debridement and she found evidence of bone fragmentation and loose hardware. This is clear evidence of osteomyelitis in addition to soft tissue infection and appropriate cultures are pending. The patient tells me today he is feeling quite well. No fevers, chills, sweats, cough, abdominal pain, nausea or vomiting. PHYSICAL EXAMINATION: Reveals an afebrile gentleman, temperature 36.8, pulse 100, blood pressure 117/79, saturating well on room air and in no acute distress. Oral cavity negative. Lungs clear. Cardiac tones: Regular rate and rhythm. The abdomen is benign. His left foot is dressed and I cannot remove the dressings to evaluate the foot by Podiatry order. LABORATORIES: Include a white count 6500 today, completely normal differential. Creatinine 0.66. Micro studies include the Gram stains from surgery which do show rare polys without organisms. We await those final cultures. Nasal swab positive for MRSA. No new imaging is available. IMPRESSION: This diabetic patient with a complicated left forefoot infection which has been debrided and appropriate cultures are pending. At this point, we will continue our treatment with daptomycin, levo and Flagyl. RECOMMENDATIONS: 1. Will continue those antibiotics, dapto, levo and Flagyl while we await final cultures. 2. I have chosen those antibiotics just to minimize IV use as the dapto is once a day IV and the levo and Flagyl are oral. Once we have established what the microbiology of this is, we can decide whether or not he will need a PICC line for prolonged IV antibiotics or whether this is something we might be able to manage orally. I will defer that decision until tomorrow or the next day, when final cultures are back. 3. Note that I will be out of town the next three days returning on July 29. I can be reached by telephone about this or any other patient and would welcome a call regarding antibiotic decisions on this patient.
--- NOTE | 2016-07-25 11:38 | NUR ---
Social Work: Continued Discharge Planning D: EMR reviewed. Pt is on day 3 of hospitalization. Per MD in AM multi-disciplinary rounds, pt will continue IVABX at hospital for the next 2-3 days. confirmed pt will leave on POABX and IVABX will be discontinued prior to discharge. Pt's mother to provide transport home via POV at discharge. SW will continue to follow. A: Pt who is independent at baseline. P:Pt to discharge home when medically stable with mother via POV. stated that pt will discharge on POABX. SW will continue to follow for ABX at discharge. GINA Dozier
[2016-07-25] MEDS: DAPTOmycin Inj 1,000 MG in 0.9% Sodium Chloride 50 ML IV SCH (11:53)
--- NOTE | 2016-07-25 12:23 | PCM.PNMED ---
Subjective Date of Service Jul 25, 2016 Subjective Foot doing better, feeling better. Blood sugars still high despite adding and increasing insulin. No other problems noted Exam Vital Signs Vital Sign - Last Date Time Temp Pulse Resp B/P Pulse Ox O2 Delivery O2 Flow Rate FiO2 07/25/16 10:00 36.6 71 18 120/78 96 Room Air 07/24/16 08:47 10 Intake and Output 07/24/16 07/24/16 07/25/16 Cumulative From/Thru 15:00 23:00 07:00 07/22/16 16:31 - 07/25/16 06:21 Intake Total 550 ml 1730 ml 700 ml 6900 ml Output Total 20 ml 800 ml 820 ml Balance 530 ml 1730 ml -100 ml 6080 ml Intake Oral 1650 ml 700 ml 5550 ml IV Total 550 ml 80 ml 1350 ml Output Urine Total 800 ml 800 ml Estimated Blood Loss 20 ml 20 ml # Voids 3 16 # Bowel Movements 1 Exam Left foot, clean bandage in place not removed CV; regular, no murmur Resp; clear GI; soft non acute, no tenderness No JVD or edema Lab and Diagnostics Result Diagram: 07/25/16 0610 07/25/16 0610 Assessment & Plan 1. Acute Cellulitis and Osteomyelitis left foot present on admission, active. -continue with PO Flagyl, PO levaquin, and IV daptomycin, Day #4 of antibiotics, -awaiting culture results, reviewed Dr. Nicole's note -control blood sugars 2. Type 2 diabetes present on admission, active. -HbA1C = 10.1 -resume metformin today -starting patient on Basal Bolus dosing for better glycemic control during this infection -Basal; increase lantus to 35 units today -Increase Nutritional insulin 10 tid ac, and high correction scale -additional coverage if Blood sugar greater the 250 90 minutes later 3. Hypertension, poa, stable -Continue patient's lisinopril and Pravachol. 4. Pain management. -Vicodin p.r.n -effective currently. VTE Mechanical Devices: Intermittant Pneumatic CD Atul Serna MD Jul 25, 2016 12:23
[2016-07-25] MEDS ORDERED: Glucose 40% Oral Gel 15 Gm Tube PO PRN (12:25)
[2016-07-25 15:52] VITALS: BP 127/80; PULSE 77; RESP 16; O2SAT 97
--- NOTE | 2016-07-25 16:34 | NUR ---
Blood Glucose/Pain Patient's blood glucose still above range, Dr. Serna increase insulin coverage to attain target/goal. Patient aware of the plan. Pain managed and relieved with 2 tablets of [place]. Will continue to monitor. Addendum: 07/25/16 at 1806 by SE VALDES RN BM Patient reported multiple BM's, usually when he takes metformin, denies any pain or discomfort. He stated he's body will get used to it.
[2016-07-25 19:59] VITALS: BP 129/81; PULSE 72; RESP 16; O2SAT 98
[2016-07-25] MEDS ORDERED: Insulin GLARgine 100 Unit/mL Syringe SUBQ SCH (21:00)
[2016-07-26] VITALS (9 sets, daily range): BP systolic 115–126; BP diastolic 74–82; PULSE 64–91; RESP 16–17; O2SAT 95–97
[2016-07-26] MEDS: Heparin 5,000 Unit/mL Inj SUBQ SCH ×3 (00:13→17:48)
--- NOTE | 2016-07-26 06:07 | NUR ---
Blood Glucose BG throughout [facility] within goal of less than 250mg/dl, pt received first dose of 35 units HS lantus, no signs of hypo and hyperglycemia tonight, call light in reach at all times.
[2016-07-26] MEDS: levoFLOXacin 750 mg Tablet PO SCH (07:47)
[2016-07-26] MEDS: HYDROcodone-APAP 10-325 mg PO PRN ×3 (07:47→19:14)
[2016-07-26] MEDS: Insulin LISPRO 300 Unit/3 mL Inj SUBQ SCH ×4 (08:43→21:39)
--- NOTE | 2016-07-26 10:42 | PCM.PNMED ---
Subjective Date of Service Jul 26, 2016 Subjective No complaints today. Pain under control. Diabetic teaching coming along well with kedarheather, however blood sugars still elevated despite increasing insulin each day, bu better. Exam Vital Signs Vital Sign - Last Date Time Temp Pulse Resp B/P Pulse Ox O2 Delivery O2 Flow Rate FiO2 07/26/16 08:31 36.5 71 16 117/76 95 Room Air 07/24/16 08:47 10 Intake and Output 07/25/16 07/25/16 07/26/16 Cumulative From/Thru 15:00 23:00 07:00 07/22/16 16:31 - 07/26/16 05:44 Intake Total 2090 ml 850 ml 9840 ml Output Total 1000 ml 1820 ml Balance 2090 ml -150 ml 8020 ml Intake Oral 2020 ml 850 ml 8420 ml IV Total 70 ml 1420 ml Output Urine Total 1000 ml 1800 ml Estimated Blood Loss 20 ml # Voids 7 23 # Bowel Movements 5 6 Exam Left foot, clean bandage in place, not removed CV; regular, no murmur, 70's Resp; clear to auscultation GI; soft non acute, no tenderness No JVD or edema Lab and Diagnostics Result Diagram: 07/25/16 0610 07/25/16 0610 Assessment & Plan 1. Acute Cellulitis and Osteomyelitis left foot present on admission, active. -continue with PO Flagyl, PO levaquin, and IV daptomycin, Day #5 of antibiotics, -awaiting culture results, when all back will call and discuss with infectious disease -otherwise continue antibiotics for today -control blood sugars 2. Type 2 diabetes present on admission, active. -HbA1C = 10.1 -resume metformin today -starting patient on Basal Bolus dosing for better glycemic control during this infection -Basal; increase lantus to 45 units today -Increase Nutritional insulin 14 tid ac, and high correction scale -additional coverage if Blood sugar greater the 250 90 minutes later 3. Hypertension, poa, stable -Continue patient's lisinopril and Pravachol. 4. Pain management. -Vicodin p.r.n -effective currently. VTE Mechanical Devices: Intermittant Pneumatic CD Atul Serna MD Jul 26, 2016 10:42
--- NOTE | 2016-07-26 10:51 | NUR ---
Social Work: Continued Discharge Planning D: EMR reviewed. Pt is on day 4 of hospitalization. Per MD in AM multi-disciplinary rounds, MD will contact ID 07/27, after blood culture results come back. MD will determine if pt will need IVABX after discharge after confirming results with ID. SW encouraged MD to notify SW if pt is to leave on IVABX. confirmed to work with SW to arrange IVABX if necessary. SW will continue to follow. A: Pt who is independent at baseline. P:Pt to discharge home when medically stable with mother via POV. stated that he will determine pt's ABX at discharge on 07/27 after reviewing cultures with ID. SW will continue to follow. GINA Dozier
[2016-07-26] MEDS: DAPTOmycin Inj 1,000 MG in 0.9% Sodium Chloride 50 ML IV SCH (11:55)
--- NOTE | 2016-07-26 16:43 | PCM.PNPOD ---
Subjective Date of Service: Jul 26, 2016 Visit Information: Reason for Visit Cellulitis Left Foot Surgery/Surgery Date : Excision of bone fragments and hardware, left foot, 07/24 Post-Op Day # 2 Date of Admission: Jul 22, 2016 at 13:05 Hospital Day # 4 Postop General: No Complaints Gastrointestinal: Good Appetite Pain Management: PO Neurological: Numbness (neuropathy at baseline) Postop Activity: Ambulating Independently Objective Vital Sign - Last Date Time Temp Pulse Resp B/P Pulse Ox O2 Delivery O2 Flow Rate FiO2 07/26/16 12:33 36.7 69 16 115/75 96 Room Air 07/24/16 08:47 10 Intake and Output 07/25/16 07/25/16 07/26/16 Cumulative From/Thru 15:00 23:00 07:00 07/22/16 16:31 - 07/26/16 05:44 Intake Total 2090 ml 850 ml 9840 ml Output Total 1000 ml 1820 ml Balance 2090 ml -150 ml 8020 ml Intake Oral 2020 ml 850 ml 8420 ml IV Total 70 ml 1420 ml Output Urine Total 1000 ml 1800 ml Estimated Blood Loss 20 ml # Voids 7 23 # Bowel Movements 5 6 Result Diagram: 07/25/16 0610 07/25/16 0610 Lab Test 07/22/16 17:55 07/25/16 06:10 Hemoglobin A1c 10.1% (4.8-5.6) Magnesium Level 1.8mg/dL (1.6-2.6) Total Bilirubin 0.8mg/dL (0.0-1.2) Aspartate Amino Transf (AST/SGOT) 14U/L (0-50) Alanine Aminotransferase (ALT/SGPT) 20U/L (0-44) Alkaline Phosphatase 69U/L (25-150) Total Protein 7.1g/dL (6.4-8.4) Albumin 4.5g/dL (3.4-5.0) Thyroid Stimulating Hormone (TSH) 0.591uIU/mL (0.450-4.500) Hold Dennis Top Tube Received (Received) White Blood Count 6.5th/mm3 (3.8-10.1) Red Blood Count 4.33mil/mm3 (4.40-5.80) Hemoglobin 12.6g/dL (13.8-17.2) Hematocrit 37.7% (41.0-50.0) Mean Corpuscular Volume 87.1fL (81-100) Mean Corpuscular Hemoglobin 29.1pg (27.0-35.0) Mean Corpuscular Hemoglobin Concent 33.4% (32.0-37.0) Red Cell Distribution Width 12.8% (12.3-15.4) Platelet Count 242bil/L (150-400) Neutrophils (%) (Auto) 52.6% (40-74) Lymphocytes (%) (Auto) 34.8% (14-46) Monocytes (%) (Auto) 9.9% (4-12) Eosinophils (%) (Auto) 2.2% (0-5) Basophils (%) (Auto) 0.3% (0-3) Sodium Level 134mEq/L (134-144) Potassium Level 4.7mEq/L (3.5-5.2) Chloride Level 96mEq/L (97-108) Carbon Dioxide Level 26mmol/L (18-29) Blood Urea Nitrogen 11mg/dL (6-24) Creatinine 0.66mg/dL (0.76-1.27) Estimat Glomerular Filtration Rate 139mL/min (>59) Glucose Level 267mg/dL (60-99) Calcium Level 8.8mg/dL (8.5-10.1) Lipase 28U/L (13-60) Procalcitonin 0.13ng/mL (0.00-0.08) Exam General: Alert, Oriented X3, Cooperative, No Acute Distress Lungs: Clear to Auscultation, Normal Air Movement Lower Extremities: Left: Edema localized (much improved) Extremity warm (resolved erythema) Lower Extremity Pulses: Palpable: Left Dorsalis Pedis Left Posterior Tibal Right Dorsalis Pedis Right Posterior Tibal Podiatry WOUND : Wound Location/Description Left dorsal foot incision is partially closed and packed with iodoform gauze, small amount of drainage on the previous dressing. Soft tissue scarring and swelling is still present dorsal to plantar compared to the opposite foot. So far the microbiology specimens are not showing any pathogens. It is likely that the patient was responding to IV antibiotics prior to the incision and drainage. Surgical Cast or Splint: None Assessment & Plan Problems: (1) Abscess or cellulitis of foot Plan: Resolved cellulitis after incision and drainage of abscess and osteomyelitis with infected hardware, continued IV and by mouth antibiotics. At this point, it is important to decide on outpatient antibiotic regimen for his left foot. Unfortunately, it is not a clear-cut case where debridement was thorough enough to be confident that all of the infected bone particles are out. In my opinion, it would be advantageous to keep him on IV antibiotics for 2 weeks postoperatively and monitor the status of the wound as well as his ESR and CRP. He would be willing to come in for daily infusions into the hospital. In that case, daptomycin is probably the best choice. However, I would tend to go with Dr. Nicole's recommendations, given this man's complex history of limb salvage efforts. Status: Acute ICD Code: L03.119 Giselle Jimenez DPM Jul 26, 2016 16:43
--- NOTE | 2016-07-26 18:13 | NUR ---
CBG/Pain Pt has been having improving CBG w/ dosing and algorithm changes w/ insulin. Pt has reported some pain, norco has continually been effective.
[2016-07-26] MEDS ORDERED: Insulin GLARgine 100 Unit/mL Syringe SUBQ SCH (21:00)
[2016-07-27 00:18] VITALS: BP 117/74; PULSE 75; RESP 18; O2SAT 96
[2016-07-27] MEDS: Heparin 5,000 Unit/mL Inj SUBQ SCH ×4 (00:20→23:41)
[2016-07-27] MEDS: HYDROcodone-APAP 10-325 mg PO PRN ×4 (00:20→22:06)
[2016-07-27 04:31] VITALS: BP 121/69; PULSE 74; RESP 18; O2SAT 96
[2016-07-27 05:57] VITALS: PULSE 74
--- NOTE | 2016-07-27 06:30 | NUR ---
Blood glucose/pain Pt blood glucose within target range of <250 (216). No signs of Hypo/Hyperglycemia during night. Patient able to rest, with one time c/o pain in Left foot. [place] relieved pain. Independent with steady gait in room. Frequent rounding continues.
[2016-07-27 08:05] VITALS: BP 119/78; PULSE 73; RESP 12; O2SAT 97
[2016-07-27] MEDS: levoFLOXacin 750 mg Tablet PO SCH (08:07)
--- NOTE | 2016-07-27 08:43 | PCM.PNPOD ---
Subjective Date of Service: Jul 27, 2016 Visit Information: Reason for Visit Cellulitis Left Foot Surgery/Surgery Date July 24, 2016 Excision of infected bone and hardware, left foot Post-Op Day # 3 Date of Admission: Jul 22, 2016 at 13:05 Subjective: Patient reports some pain, well controlled with oral hydrocodone. He is able to ambulate in the room. No excessive drainage. Gastrointestinal: Good Appetite, No N/V, Diarrhea Pain Management: PO Neurological: Numbness Objective Vital Sign - Last Date Time Temp Pulse Resp B/P Pulse Ox O2 Delivery O2 Flow Rate FiO2 07/27/16 08:05 36.4 73 12 119/78 97 Room Air 07/24/16 08:47 10 Intake and Output 07/26/16 07/26/16 07/27/16 Cumulative From/Thru 15:00 23:00 07:00 07/22/16 16:31 - 07/27/16 06:02 Intake Total 637 ml 71400 ml Output Total 650 ml 2470 ml Balance -13 ml 8007 ml Intake Oral 637 ml 9057 ml IV Total 0 ml 1420 ml Output Urine Total 650 ml 2450 ml Estimated Blood Loss 20 ml # Voids 23 # Bowel Movements 0 6 Result Diagram: 07/25/16 0610 07/25/16 0610 Lab Test 07/22/16 17:55 07/25/16 06:10 Hemoglobin A1c 10.1% (4.8-5.6) Magnesium Level 1.8mg/dL (1.6-2.6) Total Bilirubin 0.8mg/dL (0.0-1.2) Aspartate Amino Transf (AST/SGOT) 14U/L (0-50) Alanine Aminotransferase (ALT/SGPT) 20U/L (0-44) Alkaline Phosphatase 69U/L (25-150) Total Protein 7.1g/dL (6.4-8.4) Albumin 4.5g/dL (3.4-5.0) Thyroid Stimulating Hormone (TSH) 0.591uIU/mL (0.450-4.500) Hold Dennis Top Tube Received (Received) White Blood Count 6.5th/mm3 (3.8-10.1) Red Blood Count 4.33mil/mm3 (4.40-5.80) Hemoglobin 12.6g/dL (13.8-17.2) Hematocrit 37.7% (41.0-50.0) Mean Corpuscular Volume 87.1fL (81-100) Mean Corpuscular Hemoglobin 29.1pg (27.0-35.0) Mean Corpuscular Hemoglobin Concent 33.4% (32.0-37.0) Red Cell Distribution Width 12.8% (12.3-15.4) Platelet Count 242bil/L (150-400) Neutrophils (%) (Auto) 52.6% (40-74) Lymphocytes (%) (Auto) 34.8% (14-46) Monocytes (%) (Auto) 9.9% (4-12) Eosinophils (%) (Auto) 2.2% (0-5) Basophils (%) (Auto) 0.3% (0-3) Sodium Level 134mEq/L (134-144) Potassium Level 4.7mEq/L (3.5-5.2) Chloride Level 96mEq/L (97-108) Carbon Dioxide Level 26mmol/L (18-29) Blood Urea Nitrogen 11mg/dL (6-24) Creatinine 0.66mg/dL (0.76-1.27) Estimat Glomerular Filtration Rate 139mL/min (>59) Glucose Level 267mg/dL (60-99) Calcium Level 8.8mg/dL (8.5-10.1) Lipase 28U/L (13-60) Procalcitonin 0.13ng/mL (0.00-0.08) Exam General: Alert, Oriented X3, Cooperative, No Acute Distress Lungs: Clear to Auscultation, Normal Air Movement Lower Extremities: Left: Edema localized (much improved) Extremity warm (resolved erythema) Lower Extremity Pulses: Palpable: Left Dorsalis Pedis Left Posterior Tibal Right Dorsalis Pedis Right Posterior Tibal Podiatry WOUND : Wound Location/Description Dorsal left foot incision is partially closed with a distal packed wound due to void in tissue. No purulence, no odor. Surgical Cast or Splint: None Assessment & Plan Problems: (1) Abscess or cellulitis of foot Plan: I changed his dressing and packing into the wound today. I irrigated it well with normal saline. He is comfortable enough to do dressing changes at home himself, but we can arrange wound care visits as well. He is hoping to be discharged before Friday so that he can help with the family member who is in need of medical care as well. His dressing will need to consist of packing, either plain Nu Gauze or iodoform, saline moistened gauze, Kerlix, Huan wrap, and the postoperative shoe. He can bear weight as tolerated, but physical work is contraindicated until full healing occurs. New x-rays will be ordered later on next week when he comes in for his postop appointment with me on Friday. Resolved cellulitis after incision and drainage of abscess and osteomyelitis with infected hardware, continued IV and by mouth antibiotics. At this point, it is important to decide on outpatient antibiotic regimen for his left foot. Unfortunately, it is not a clear-cut case where debridement was thorough enough to be confident that all of the infected bone particles are out. In my opinion , it would be advantageous to keep him on IV antibiotics for 2 weeks postoperatively and monitor the status of the wound as well as his ESR and CRP. He would be willing to come in for daily infusions into the hospital. In that case, daptomycin is probably the best choice. However, I would tend to go with Dr. Nicole's recommendations, given this man's complex history of limb salvage efforts. Status: Acute ICD Code: L03.119 Giselle Jimenez DPM Jul 27, 2016 08:43
[2016-07-27] MEDS: Insulin LISPRO 300 Unit/3 mL Inj SUBQ SCH (09:18)
--- NOTE | 2016-07-27 10:56 | PCM.PNMED ---
Subjective Date of Service Jul 27, 2016 Subjective No problems overnight. Blood sugars still high despite initiating insulin and gradually increasing to almost 100 units per day. Patient is doing well with diabetic education with nursing. Wound and foot looking good per nursing. Exam Vital Signs Vital Sign - Last Date Time Temp Pulse Resp B/P Pulse Ox O2 Delivery O2 Flow Rate FiO2 07/27/16 08:05 36.4 73 12 119/78 97 Room Air 07/24/16 08:47 10 Intake and Output 07/26/16 07/26/16 07/27/16 Cumulative From/Thru 15:00 23:00 07:00 07/22/16 16:31 - 07/27/16 06:02 Intake Total 637 ml 93180 ml Output Total 650 ml 2470 ml Balance -13 ml 8007 ml Intake Oral 637 ml 9057 ml IV Total 0 ml 1420 ml Output Urine Total 650 ml 2450 ml Estimated Blood Loss 20 ml # Voids 23 # Bowel Movements 0 6 Exam Left foot, clean bandage in place, not removed, but doing well per nursing CV; regular, no murmur, 70's Resp; clear to auscultation GI; soft non acute, not tender No JVD or edema Lab and Diagnostics Result Diagram: 07/25/16 0610 07/25/16 0610 Assessment & Plan 1. Acute Cellulitis and Osteomyelitis left foot present on admission, active. -continue with PO Flagyl, PO levaquin, and IV daptomycin, Day #6 of antibiotics, -Unfortunately specimen cultures remain negative for a specific pathogen; and patient has MRSA in nasal pcr; Will continue with current antibiotics, especially the dapto, and further antibiotic management can be discussed with infectious disease on Friday -control blood sugars 2. Type 2 diabetes present on admission, active. -HbA1C = 10.1 -continue on Basal Bolus dosing for better glycemic control during this infection bur will change lantus/humlog (45 + 14tid) to NPH/regualr bid with correction and see if this is more effective for this patient -human 70/30 (NPH/Reg insulin) 50 bid AC -human Reg medium correction scale -continue metformin -recommend out patient diabetes consultation and follow up -order diabetic teaching 3. Hypertension, poa, stable -Continue patient's lisinopril and Pravachol. 4. Pain management. -Vicodin p.r.n -effective currently. Disposition; -pcp is Dr Criss Woods -diabetic teaching ordered VTE Mechanical Devices: Intermittant Pneumatic CD Atul Serna MD Jul 27, 2016 10:56
[2016-07-27] MEDS ORDERED: Insulin Human REGular 300 Unit/3 mL Inj SUBQ SCH (11:30)
[2016-07-27] MEDS ORDERED: 0.9% Sodium Chloride 100 ML ONE (11:43)
[2016-07-27] MEDS: DAPTOmycin Inj 1,000 MG in 0.9% Sodium Chloride 50 ML IV SCH (11:57)
[2016-07-27] MEDS: Insulin LISPRO Medium-Dose Scale SUBQ SCH ×3 (12:52→22:10)
[2016-07-27] MEDS ORDERED: [UNRECOGNIZED DRUG - OTHER] SUBQ SCH (16:30)
[2016-07-27] MEDS ORDERED: INSULIN REGULAR SUBQ SCH (16:30)
[2016-07-27] MEDS: Insulin Human NPH-Reg 70-30 100 Unit/mL 3 mL Pen SUBQ SCH (16:56)
[2016-07-27 17:05] VITALS: BP 124/84; PULSE 80; RESP 12; O2SAT 97
--- NOTE | 2016-07-27 18:39 | NUR ---
Status Pt stable today with pain controlled with norco. OOB ambulating santos x2. Seen by podiatry. VSS. Blood glucose remains elevated, MD aware and adjusting medications. Will continue to monitor.
[2016-07-27 22:00] VITALS: BP 125/81; PULSE 92; RESP 16; O2SAT 96
--- NOTE | 2016-07-28 01:31 | NUR ---
Blood sugar / pain HS blood sugar 205, Humalog SSI 2 units given. L foot elevated on pillow, dressings covered w/ scotty wrap CDI, + CSM checks. Indep w/ ambulation in room and on unit, steady gait. PRN norco 10/325 (two tabs) given at HS for BTP. call light w/in reach. CTM for changes.
[2016-07-28 05:48] VITALS: BP 114/73; PULSE 62; RESP 15; O2SAT 98
[2016-07-28] MEDS: Insulin LISPRO Medium-Dose Scale SUBQ SCH ×4 (07:20→22:00)
[2016-07-28 07:36] VITALS: BP 114/76; PULSE 67; O2SAT 97
[2016-07-28] MEDS: Heparin 5,000 Unit/mL Inj SUBQ SCH ×3 (07:41→23:45)
[2016-07-28] MEDS: Insulin Human NPH-Reg 70-30 100 Unit/mL 3 mL Pen SUBQ SCH ×2 (07:41→16:40)
[2016-07-28] MEDS: HYDROcodone-APAP 10-325 mg PO PRN ×3 (07:42→18:07)
[2016-07-28] MEDS: levoFLOXacin 750 mg Tablet PO SCH (07:42)
--- NOTE | 2016-07-28 09:16 | NUR ---
ELI signed by pt at bedside. Raven Farley, WOOD BUFFER
--- NOTE | 2016-07-28 11:46 | PCM.PNMED ---
Subjective Date of Service Jul 28, 2016 Subjective Blood sugars finially doing better, I switched to NPH/Reg combination and sugars better. !$) this AM, but still 240 before lunch. Unfortunately specimen cultures so far do not show a pathogen, but still pending. No new complaints Exam Vital Signs Vital Sign - Last Date Time Temp Pulse Resp B/P Pulse Ox O2 Delivery O2 Flow Rate FiO2 07/28/16 07:36 67 114/76 97 Room Air 07/28/16 05:48 36.5 15 07/24/16 08:47 10 Intake and Output 07/27/16 07/27/16 07/28/16 Cumulative From/Thru 15:00 23:00 07:00 07/22/16 16:31 - 07/28/16 06:11 Intake Total 885 ml 480 ml 39616 ml Output Total 2470 ml Balance 885 ml 480 ml 9372 ml Intake Oral 830 ml 480 ml 55225 ml IV Total 55 ml 1475 ml Output Urine Total 2450 ml Estimated Blood Loss 20 ml # Voids 4 3 30 # Bowel Movements 6 Exam Left foot, clean bandage in place, not removed, but doing well per nursing, minimal discomfort CV; regular, no murmur, 70's Resp; clear to auscultation GI; soft non acute, not tender No JVD or edema Lab and Diagnostics Result Diagram: 07/25/1660907/25/16609 Assessment & Plan 1. Acute Cellulitis and Osteomyelitis left foot present on admission, active. -continue with PO Flagyl, PO levaquin, and IV daptomycin, Day #7 of antibiotics, -Unfortunately specimen cultures remain negative for a specific pathogen; and patient has MRSA in nasal pcr; Will continue with current antibiotics, especially the dapto, and further antibiotic management can be discussed with infectious disease on Friday -control blood sugars 2. Type 2 diabetes present on admission, active. -HbA1C = 10.1 -continue on Basal Bolus dosing for better glycemic control during this infection bur will change lantus/humlog (45 + 14tid) to NPH/regualr bid with correction and see if this is more effective for this patient -human 70/30 (NPH/Reg insulin) , increase today to 60 unitis AM and 50 units PM. -human Reg medium correction scale -continue metformin -recommend out patient diabetes consultation and follow up -order diabetic teaching 3. Hypertension, poa, stable -Continue patient's lisinopril and Pravachol. 4. Pain management. -Vicodin p.r.n -effective currently. Disposition; -pcp is Dr Criss Woods -diabetic teaching ordered VTE Mechanical Devices: Intermittant Pneumatic CD Atul Serna MD Jul 28, 2016 11:46
[2016-07-28] MEDS: DAPTOmycin Inj 1,000 MG in 0.9% Sodium Chloride 50 ML IV SCH (12:15)
--- NOTE | 2016-07-28 14:09 | PCM.PNPOD ---
Subjective Date of Service: Jul 28, 2016 Visit Information: Reason for Visit Cellulitis Left Foot Surgery/Surgery Date July 24, 2016 Excision of infected bone and hardware, left foot Post-Op Day # 4 Date of Admission: Jul 22, 2016 at 13:05 Subjective: Patient states that his energy level has improved, his foot pain is diminishing , and he is looking forward to getting home. Objective Vital Sign - Last Date Time Temp Pulse Resp B/P Pulse Ox O2 Delivery O2 Flow Rate FiO2 07/28/16 07:36 67 114/76 97 Room Air 07/28/16 05:48 36.5 15 07/24/16 08:47 10 Intake and Output 07/27/16 07/27/16 07/28/16 Cumulative From/Thru 15:00 23:00 07:00 07/22/16 16:31 - 07/28/16 06:11 Intake Total 885 ml 480 ml 36614 ml Output Total 2470 ml Balance 885 ml 480 ml 9372 ml Intake Oral 830 ml 480 ml 84094 ml IV Total 55 ml 1475 ml Output Urine Total 2450 ml Estimated Blood Loss 20 ml # Voids 4 3 30 # Bowel Movements 6 Result Diagram: 07/25/16 0610 07/25/16 0610 Lab Test 07/22/16 17:55 07/25/16 06:10 Hemoglobin A1c 10.1% (4.8-5.6) Magnesium Level 1.8mg/dL (1.6-2.6) Total Bilirubin 0.8mg/dL (0.0-1.2) Aspartate Amino Transf (AST/SGOT) 14U/L (0-50) Alanine Aminotransferase (ALT/SGPT) 20U/L (0-44) Alkaline Phosphatase 69U/L (25-150) Total Protein 7.1g/dL (6.4-8.4) Albumin 4.5g/dL (3.4-5.0) Thyroid Stimulating Hormone (TSH) 0.591uIU/mL (0.450-4.500) Hold Dennis Top Tube Received (Received) White Blood Count 6.5th/mm3 (3.8-10.1) Red Blood Count 4.33mil/mm3 (4.40-5.80) Hemoglobin 12.6g/dL (13.8-17.2) Hematocrit 37.7% (41.0-50.0) Mean Corpuscular Volume 87.1fL (81-100) Mean Corpuscular Hemoglobin 29.1pg (27.0-35.0) Mean Corpuscular Hemoglobin Concent 33.4% (32.0-37.0) Red Cell Distribution Width 12.8% (12.3-15.4) Platelet Count 242bil/L (150-400) Neutrophils (%) (Auto) 52.6% (40-74) Lymphocytes (%) (Auto) 34.8% (14-46) Monocytes (%) (Auto) 9.9% (4-12) Eosinophils (%) (Auto) 2.2% (0-5) Basophils (%) (Auto) 0.3% (0-3) Sodium Level 134mEq/L (134-144) Potassium Level 4.7mEq/L (3.5-5.2) Chloride Level 96mEq/L (97-108) Carbon Dioxide Level 26mmol/L (18-29) Blood Urea Nitrogen 11mg/dL (6-24) Creatinine 0.66mg/dL (0.76-1.27) Estimat Glomerular Filtration Rate 139mL/min (>59) Glucose Level 267mg/dL (60-99) Calcium Level 8.8mg/dL (8.5-10.1) Lipase 28U/L (13-60) Procalcitonin 0.13ng/mL (0.00-0.08) Exam General: Alert, Oriented X3, Cooperative, No Acute Distress Lungs: Clear to Auscultation, Normal Air Movement Lower Extremities: Left: Edema localized (continuously improving. ) Extremity warm (resolved erythema) Lower Extremity Pulses: Palpable: Left Dorsalis Pedis Left Posterior Tibal Right Dorsalis Pedis Right Posterior Tibal Podiatry WOUND : Wound Location/Description Dorsal left foot incision is partially closed with a distal packed wound due to void in tissue. No purulence, no odor. Granulation filling in. Surgical Cast or Splint: None Assessment & Plan Problems: (1) Abscess or cellulitis of foot Plan: I changed his dressing and packing into the wound today. I irrigated it well with normal saline. He is comfortable enough to do dressing changes at home himself, but we can arrange wound care visits as well. His dressing will need to consist of packing, either plain Nu Gauze or iodoform, saline moistened gauze, Kerlix, Huan wrap, and the postoperative shoe. He can bear weight as tolerated, but physical work is contraindicated until full healing occurs. New x-rays will be ordered later on next week when he comes in for his postop appointment with me on Friday. Resolved cellulitis after incision and drainage of abscess and osteomyelitis with infected hardware, continued IV and by mouth antibiotics. At this point, it is important to decide on outpatient antibiotic regimen for his left foot. Unfortunately, it is not a clear-cut case where debridement was thorough enough to be confident that all of the infected bone particles are out. In my opinion , it would be advantageous to keep him on IV antibiotics for 2 weeks postoperatively and monitor the status of the wound as well as his ESR and CRP. He would be willing to come in for daily infusions into the hospital. In that case, daptomycin is probably the best choice. However, I would tend to go with Dr. Nicole's recommendations, given this man's complex history of limb salvage efforts. Status: Acute ICD Code: L03.119 Giselle Jimenez DPM Jul 28, 2016 14:09
[2016-07-28 16:36] VITALS: BP 115/76; PULSE 82; RESP 12; O2SAT 96
--- NOTE | 2016-07-28 17:21 | NUR ---
GI notified of pt reports of some loose stools 07/27/16 and one loose stool so far today 07/28/16. To collect cdiff PCR. Pt notified and aware. Taking sufficient po fluids. No abdominal pain or n/v. Eating well. Will continue to monitor.
[2016-07-28] MEDS ORDERED: Insulin Human NPH-Reg 70-30 100 Unit/mL 10 ML Mdv SUBQ SCH (17:30)
[2016-07-29 02:10] VITALS: BP 119/77; PULSE 75; RESP 16; O2SAT 97
--- NOTE | 2016-07-29 06:02 | NUR ---
Pain Pt reported at beginning of shift he was going to "wean" himself from the pain medication because "it won't be available at home". 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 I frequently checked on him, and he reported 3/10 pain, and chose not to have medication throughout the night and was able to rest.
[2016-07-29 06:27] LABS: BASOPHILS % (AUTO) 0.5 % (0-3); EOSINOPHILS % (AUTO) 2.6 % (0-5); MONOCYTES % (AUTO) 7.8 % (4-12); Mean Corpuscular Volume 86.7 fL (81-100); NEUTROPHILS % (AUTO) 49.9 % (40-74); Platelet Count 292 bil/L (150-400)
[2016-07-29] MEDS ORDERED: Insulin Human NPH-Reg 70-30 100 Unit/mL 10 ML Mdv SUBQ SCH (08:00)
[2016-07-29] MEDS: levoFLOXacin 750 mg Tablet PO SCH (08:14)
[2016-07-29] MEDS: Insulin Human NPH-Reg 70-30 100 Unit/mL 3 mL Pen SUBQ SCH ×2 (08:16→17:05)
[2016-07-29] MEDS: HYDROcodone-APAP 10-325 mg PO PRN ×2 (08:39→19:17)
[2016-07-29] MEDS: Heparin 5,000 Unit/mL Inj SUBQ SCH ×2 (08:41→17:06)
[2016-07-29] MEDS: Insulin LISPRO Medium-Dose Scale SUBQ SCH ×4 (08:43→22:00)
[2016-07-29 12:00] VITALS: BP 108/72; PULSE 80; RESP 18; O2SAT 98
[2016-07-29] MEDS: DAPTOmycin Inj 1,000 MG in 0.9% Sodium Chloride 50 ML IV SCH (13:17)
--- NOTE | 2016-07-29 14:23 | NUR ---
PLAN OF CARE SEEN BY DR. LACEY TODAY, WILL CONTINUE FOR ANOTHER WEEK OF IV ANTIBIOTIC AND WILL BE ARRANGED IN THE OUT PATIENT. PATIENT AWARE OF PLAN AND MOCO ALSO NOTIFIED. PAIN MANAGED WELL WITH 2 TABS OF NORCO. WILL CONTINUE TO MONITOR AT THIS TIME.
--- NOTE | 2016-07-29 15:59 | NUR ---
Social Work-continued d/c planning: Data:EMR Reviewed. Pt is on day 7 of hospitalization for cellulitis per H&P. Pt is not medically stable for discharge at this time. ID to see pt today and determine abx needs for discharge. SW to await recommendations and assist with any needs for abx at discharge. Pt has been up independent in his room. SW will continue to follow. Assessment:Pt who is independent at baseline. Plan:Pt to discharge home when medically stable via POV. ID to determine Abx needs. SW will continue to follow. GINA Adams
--- NOTE | 2016-07-29 19:03 | PROG NOTE ---
[address] [address] PROGRESS NOTE PATIENT: IVAN MORRISSEY : 1970 MR#: [id number] ADMIT: 07/22/2016 JOB ID: [id number] DATE: 07/29/2016 REASON FOR FOLLOWUP: Osteomyelitis, left foot. INTERVAL HISTORY: Over the weekend, the patient has felt quite well. No fevers, chills, sweats. No new pulmonary or GI symptoms. No pain in the left foot. Dr. Jimenez of Podiatry has us helpful notes. She states that there may still be residual infection and perhaps even osteo within the foot and, for that reason, she would favor at least a couple more weeks or a couple weeks total of IV antibiotics to be followed by a longer course of oral antibiotics with close followup. PHYSICAL EXAMINATION: Reveals an afebrile gentleman, in no acute distress. Temp 36.6, pulse 75, respiratory rate 16, blood pressure 119/77. He is saturating well on room air. Mental status is clear. He has no skin rash. Lungs clear. Abdomen without change. Left foot is wrapped in a recently redone large dressing which I did not remove, but his toes protrude from the dressing and appear benign. LABORATORIES: Include a white count 8100 today. Creatinine 0.82. Procalcitonin has declined basically to 0 today. Micro studies include a positive nasal MRSA. Unfortunately, two cultures taken from the left foot abscess and ostial site have been negative. One had three colonies of a coag-negative staph, which I suspect is colonization or contamination, and the other one is completely negative. Thus, we have no diagnostic micro. Do note that on prior admissions though, the patient has had a great deal of trouble with MRSA cultured from deep wounds and on this occasion, he was MRSA colonized at least in his nose. No new x-rays are available. IMPRESSION: This patient is ready for discharge from a clinical point of view. Unfortunately, we do not have any clear microbiologic diagnosis. I suspect what was going on in his left forefoot with the osteo and infection of the hardware though was most likely methicillin-resistant Staphylococcus aureus. Given his drug allergy history and other problems, I think it is reasonable to continue with daptomycin at least through August 07 or so to finish up a couple weeks of therapy. RECOMMENDATIONS: 1. I would go ahead and discharge the patient today. 2. Daptomycin 1 g once a day to be continued through August 07 and, at that time, I will see the patient in my clinic and re-evaluate. 3. I would send him out also on Levo 750 once a day and Flagyl 500 twice a day. Both of these can be given orally, of course. 4. A decision regarding duration of all these antibiotics will be taken when I see the patient back on August 07. 5. Also note that I have written orders for home labs which will be done every Friday CBC, CMP, CRP and CPK and I will be checking these.
[2016-07-29 19:30] VITALS: BP 118/74; PULSE 88; RESP 17; O2SAT 99
--- NOTE | 2016-07-29 22:57 | PCM.PNMED ---
Subjective Date of Service Jul 29, 2016 Subjective 46M Uncontrolled diabetic s/p foot surgery for abscess I&D 3rd and 4th MTP, removal of hardware by Dr. Jimenez, currently requiring a lot of insulin. He has nothing growing in cx, waiting for Dr. Mccauley to clear him for d/c abx. He says he has no complaints, diagnosed with DM II 7 yrs ago, was not on insulin prior to this., He lives on disability, does not plan to go back to work. Denies hypoglycemia. He has no pain. He is walking on foot. Dr Jimenez doing wound care, he does not have PT/OT Exam Vital Signs Vital Sign - Last Date Time Temp Pulse Resp B/P Pulse Ox O2 Delivery O2 Flow Rate FiO2 07/29/16 02:10 36.6 75 16 119/77 97 Room Air 07/24/16 08:47 10 Intake and Output 07/28/16 07/28/16 07/29/16 Cumulative From/Thru 15:00 23:00 07:00 07/22/16 16:31 - 07/28/16 19:02 Intake Total 2127 ml 40316 ml Output Total 2470 ml Balance 2127 ml 80619 ml Intake Oral 2047 ml 95583 ml IV Total 80 ml 1555 ml Output Urine Total 2450 ml Estimated Blood Loss 20 ml # Voids 5 35 # Bowel Movements 1 7 Exam General: Alert, Oriented X3, Cooperative Eyes: PERRLA, Scleral Anicteric Mouth: Mouth Normal, Mucous Membranes dry Neck: Supple, no Thyromegaly, trachea central. Chest & Lungs: Clear to auscultation & percussion, No adventitious breath sounds, no crackles, no wheeze Cardiovascular: Normal S1, Normal S2, No Murmurs/Rubs/Gallops, Regular Rate/ Rhythm, (No JVD, no peripheral edema) Abdomen: Soft, Non-tender, Non-distended, Musculoskeletal: Unremarkable. Normal range of motion, able ot move left big toe , not others, Extremities: No edema, no cyanosis Skin: No rashes. Warm and dry, no erythematous areas. Left foot looks clean, thought he actual incision site has not been seen due to heavy dressings Neurological: Grossly neurologically intact, Normal Speech IVs and Medications IV Fluids none Medications Reviewed: Medications were reviewed in detail Lab and Diagnostics Laboratory Tests Test 07/29/16 05:45 White Blood Count 8.1th/mm3 (3.8-10.1) Red Blood Count 4.72mil/mm3 (4.40-5.80) Hemoglobin 13.7g/dL (13.8-17.2) Hematocrit 40.9% (41.0-50.0) Mean Corpuscular Volume 86.7fL (81-100) Mean Corpuscular Hemoglobin 29.0pg (27.0-35.0) Mean Corpuscular Hemoglobin Concent 33.5% (32.0-37.0) Red Cell Distribution Width 13.2% (12.3-15.4) Platelet Count 292bil/L (150-400) Neutrophils (%) (Auto) 49.9% (40-74) Lymphocytes (%) (Auto) 38.3% (14-46) Monocytes (%) (Auto) 7.8% (4-12) Eosinophils (%) (Auto) 2.6% (0-5) Basophils (%) (Auto) 0.5% (0-3) Sodium Level 134mEq/L (134-144) Potassium Level 4.9mEq/L (3.5-5.2) Chloride Level 97mEq/L (97-108) Carbon Dioxide Level 24mmol/L (18-29) Blood Urea Nitrogen 12mg/dL (6-24) Creatinine 0.82mg/dL (0.76-1.27) Estimat Glomerular Filtration Rate 108mL/min (>59) Glucose Level 244mg/dL (60-99) Calcium Level 9.3mg/dL (8.5-10.1) Procalcitonin 0.04ng/mL (0.00-0.08) Microbiology 07/22/16 Blood Culture - Final, Complete NO GROWTH AFTER 5 DAYS 07/28/16 C. difficile DNA Amplification, Received Pending 07/22/16 MRSA (PCR) - Final, Complete Mrsa Positive By Pcr 07/24/16 Gram Stain - Final, Resulted 07/24/16 Culture & Sensitivity - Preliminary, Resulted SCANT NORMAL MEGHA PRESENT 07/24/16 Anaerobic Culture - Preliminary, Resulted Result Diagram: 07/25/16 0610 07/25/16 0610 X-Rays, CTs and MRIs PROCEDURE: X-RAY LEFT FOOT COMPLETE, MINIMUM THREE VIEWS ([id number]) INDICATIONS: Evaluate osteotomy/possible abscess IMPRESSION: 1. Postsurgical changes as above. There is abnormal cortical lucency, irregularity as well as exuberant periosteal reaction at the osteotomy sites of the distal third and fourth metatarsals, suspicious for osteomyelitis. Recommend clinical correlation and followup. 2. Resection of the second toe. Dictated by: Clovis Bojorquez RRA Interpreted: Charisma Garcia MD on 07/23/2016 at 12:41 Transcribed by: RAJ on 07/23/2016 at 12:46 Approved by: Charisma Garcia M.D. on 07/24/2016 at 9:54 Assessment & Plan 1. Acute Cellulitis and Osteomyelitis left foot present on admission, active. 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 --Dr. Nicole has seent he patient: His recommendations as follows: "2. Daptomycin 1 g once a day to be continued through August 07 and, at that time, I will see the patient in my clinic and re-evaluate. 3. I would send him out also on Levo 750 once a day and Flagyl 500 twice a day. Both of these can be given orally, of course. 4. A decision regarding duration of all these antibiotics will be taken when I see the patient back on August 07. 5. Also note that I have written orders for home labs which will be done every Friday CBC, CMP, CRP and CPK and I will be checking these." -control blood sugars 2. Type 2 diabetes present on admission, active. -HbA1C = 10.1 -continue on Basal Bolus dosing for better glycemic control during this infection bur will change lantus/humlog (45 + 14tid) to NPH/regualr bid with correction and see if this is more effective for this patient -human 70/30 (NPH/Reg insulin) , increase today to 60 unitis AM and 50 units PM. -human Reg medium correction scale -continue metformin -recommend out patient diabetes consultation and follow up -diabetic teaching 3. Hypertension, poa, stable -Continue patient's lisinopril and Pravachol. 4. Pain management. -Vicodin p.r.n -effective currently. Disposition; -pcp is Dr Criss Woods -diabetic teaching ordered Disposition: To home on 07/30 on dapto, levaquin adn flagyl Pain Evaluation: Adequate Pain Control VTE Mechanical Devices: Intermittant Pneumatic CD Resuscitation Status: CPR: Attempt Resuscitation Time spent 25 min Yamilka Chaney DO Jul 29, 2016 05:38
[2016-07-29] MEDS ORDERED: METR500T PO (23:03)
[2016-07-29] MEDS ORDERED: LEVO750T9 PO (23:03)
[2016-07-29] MEDS ORDERED: HUM100IN3 SUBQ ×2 (23:03)
[2016-07-29] MEDS ORDERED: SENN-133 PO (23:03)
[2016-07-30] MEDS: HYDROcodone-APAP 10-325 mg PO PRN (00:20)
[2016-07-30] MEDS: Heparin 5,000 Unit/mL Inj SUBQ SCH ×2 (00:20→08:06)
[2016-07-30 05:00] VITALS: BP 109/74; PULSE 71; RESP 16; O2SAT 98
--- NOTE | 2016-07-30 05:39 | NUR ---
Pain Pt controlled pain throughout the night but needed 2 tablets when pain was 7/10.
[2016-07-30] MEDS ORDERED: DAPT500V2 IV ×2 (07:33→08:11)
[2016-07-30] MEDS: levoFLOXacin 750 mg Tablet PO SCH (07:50)
[2016-07-30] MEDS: Insulin Human NPH-Reg 70-30 100 Unit/mL 3 mL Pen SUBQ SCH (07:59)
[2016-07-30] MEDS ORDERED: HUM100IN3 SUBQ ×2 (08:00)
--- NOTE | 2016-07-30 08:05 | PCM.DIMED ---
Discharge Instructions Date of Service Jul 30, 2016 Dates of Hospitalization Jul 22, 2016 at 13:05 Discharge Diagnosis Discharge Diagnosis Excision of infected bone and hardware, left foot, chronic osteomyelitis, DM II Medication Instructions Additional med instructions Please note your new insulin usage. You were given diabetes education Diet Discharge Diet: Diabetic Activity Discharge Activity: Limited until seen by PCP Call your provider Call your provider for: Fever or Chills, Shortness of breath, Bleeding, Chest pain, Vomitting, Excessive diarrhea, Weakness (unilateral), Other Patient Instructions Patient Instructions His dressing will need to consist of packing, either plain Nu Gauze or iodoform , saline moistened gauze, Kerlix, Huan wrap, and the postoperative shoe. He can bear weight as tolerated, but physical work is contraindicated until full healing occurs. Follow-up plan New x-rays will be ordered later on next week when he comes in for his postop appointment with me on Friday. Aug 07, 2016 f/u with Dr. Nicole Also note that he has written orders for home labs which will be done every Friday CBC, CMP, CRP and CPK and he will be checking these. 1 week f/u with PCP Dr. Woods for DM II Yamilka Chaney DO Jul 30, 2016 08:01
--- NOTE | 2016-07-30 08:17 | PCM.DC.MED ---
Discharge Summary Date of Service Jul 30, 2016 Dates of Hospitalization Date of Hospital Admission Jul 22, 2016 at 13:05 Date of Discharge: Jul 30, 2016 Providers: Admitting Physician: Atul Serna MD Primary Care Physician: Criss Woods MD Attending Physician: Atul Serna MD Diagnosis at Time of Discharge Diagnosis at Time of Discharge Excision of infected bone and hardware, left foot, chronic osteomyelitis, DM II Consultations ID, Podiatry Procedures XRay, CTs & MRIs PROCEDURE: X-RAY LEFT FOOT COMPLETE, MINIMUM THREE VIEWS ([id number]) INDICATIONS: Evaluate osteotomy/possible abscess IMPRESSION: 1. Postsurgical changes as above. There is abnormal cortical lucency, irregularity as well as exuberant periosteal reaction at the osteotomy sites of the distal third and fourth metatarsals, suspicious for osteomyelitis. Recommend clinical correlation and followup. 2. Resection of the second toe. Dictated by: Clovis Bojoruqez RRA Interpreted: Charisma Garcia MD on 07/23/2016 at 12:41 Transcribed by: RAJ on 07/23/2016 at 12:46 Approved by: Charisma Garcia M.D. on 07/24/2016 at 9:54 Invasive Procedures 07/24/16 Debridement and removal of hardware, irrigation by Dr. Handley [facility] Course 1. Acute Cellulitis and Osteomyelitis left foot present on admission, active. 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 --Dr. Nicole has seent he patient: His recommendations as follows: "2. Daptomycin 1 g once a day to be continued through August 07 and, at that time, I will see the patient in my clinic and re-evaluate. 3. I would send him out also on Levo 750 once a day and Flagyl 500 twice a day. Both of these can be given orally, of course. 4. A decision regarding duration of all these antibiotics will be taken when I see the patient back on August 07. 5. Also note that I have written orders for home labs which will be done every Friday CBC, CMP, CRP and CPK and I will be checking these." -control blood sugars 2. Type 2 diabetes present on admission, active. -HbA1C = 10.1 -continue on Basal Bolus dosing for better glycemic control during this infection bur will change lantus/humlog (45 + 14tid) to NPH/regualr bid with correction and see if this is more effective for this patient -continue metformin -recommend out patient diabetes consultation and follow up -diabetic teaching is given --Patient is discharged on 80% of his total intake here. WE request that the PCP makes any additional changes to his regimen at f/u. 3. Hypertension, poa, stable -Continued patient's lisinopril 4. Hyperlipidemia: -- Continued Pravachol. 5. Pain management. -Vicodin p.r.n -effective currently. --Patient stated he has a full script of pain meds at home and does not need any pain medication. Disposition; -pcp is Dr Criss Woods -diabetic teaching ordered Disposition: To home on 07/30 on dapto, levaquin adn flagyl Exam Vital Signs (Last) Date Time Temp Pulse Resp B/P Pulse Ox O2 Delivery O2 Flow Rate FiO2 07/30/16 05:00 36.5 71 16 109/74 98 Room Air 07/24/16 08:47 10 Exam General: NAD HEENT: NCAT Heart: RRR, no s3/s4 Lungs: CTA, no crackles or wheezes Abd: Flat, non-distended Ext: Neg for edema, dressings appear clean and dry Skin: Warm and dry Test 07/22/16 17:55 07/25/16 06:10 07/29/16 05:45 07/30/16 06:35 Hemoglobin A1c 10.1% (4.8-5.6) Magnesium Level 1.8mg/dL (1.6-2.6) Total Bilirubin 0.8mg/dL (0.0-1.2) Aspartate Amino Transf (AST/SGOT) 14U/L (0-50) Alanine Aminotransferase (ALT/SGPT) 20U/L (0-44) Alkaline Phosphatase 69U/L (25-150) Total Protein 7.1g/dL (6.4-8.4) Albumin 4.5g/dL (3.4-5.0) Thyroid Stimulating Hormone (TSH) 0.591uIU/mL (0.450-4.500) Hold Dennis Top Tube Received (Received) Lipase 28U/L (13-60) White Blood Count 8.1th/mm3 (3.8-10.1) Red Blood Count 4.72mil/mm3 (4.40-5.80) Hemoglobin 13.7g/dL (13.8-17.2) Hematocrit 40.9% (41.0-50.0) Mean Corpuscular Volume 86.7fL (81-100) Mean Corpuscular Hemoglobin 29.0pg (27.0-35.0) Mean Corpuscular Hemoglobin Concent 33.5% (32.0-37.0) Red Cell Distribution Width 13.2% (12.3-15.4) Platelet Count 292bil/L (150-400) Neutrophils (%) (Auto) 49.9% (40-74) Lymphocytes (%) (Auto) 38.3% (14-46) Monocytes (%) (Auto) 7.8% (4-12) Eosinophils (%) (Auto) 2.6% (0-5) Basophils (%) (Auto) 0.5% (0-3) Sodium Level 134mEq/L (134-144) Potassium Level 4.9mEq/L (3.5-5.2) Chloride Level 97mEq/L (97-108) Carbon Dioxide Level 24mmol/L (18-29) Blood Urea Nitrogen 12mg/dL (6-24) Creatinine 0.82mg/dL (0.76-1.27) Estimat Glomerular Filtration Rate 108mL/min (>59) Glucose Level 244mg/dL (60-99) Calcium Level 9.3mg/dL (8.5-10.1) C-Reactive Protein 0.6mg/dL (0.0-0.5) Procalcitonin 0.04ng/mL (0.00-0.08) Total Creatine Kinase 49U/L (21-232) Discharge Medications Discharge Medications Daptomycin (Daptomycin) 500 Mg Vial 1,000 MG IV DAILY Prescribed by: YAMILKA JANG DO Hum Insulin NPH/Reg Insulin Hm (HUMulin 70/30 U100 Insulin Kwikpen) 100 Unit/1 Ml Insuln.pen 50 UNIT SUBQ DAILYAC Prescribed by: YAMILKA JANG DO Hum Insulin NPH/Reg Insulin Hm (HUMulin 70/30 U100 Insulin Kwikpen) 100 Unit/1 Ml Insuln.pen 40 UNIT SUBQ DAILY@1630 Prescribed by: YAMILKA JANG DO Levofloxacin (Levaquin) 750 Mg Tablet 750 MG PO DAILYAC Prescribed by: YAMILKA JANG DO Lisinopril (Lisinopril) 40 Mg Tablet 40 MG PO DAILY (Reported) Metformin ER (Metformin ER) 1,000 Mg Tablet 1,000 MG PO BID (Reported) Metronidazole (Flagyl) 500 Mg Tablet 500 MG PO Q8 Prescribed by: YAMILKA JANG DO Pravastatin (Pravastatin) 20 Mg Tablet 20 MG PO HS (Reported) As needed Hydrocodone-Acetaminophen 7.5-325 mg (Hydrocodone-Acetaminophen 7.5-325 mg) 1 Each Tablet 1 TABLET PO Q4H PRN PRN For Pain Prescribed by: ABDELRAHMAN HANDLEY MD Sennosides (Senna) 8.6 Mg Tablet 17.2 MG PO BID PRN PRN For Constipation Prescribed by: YAMILKA JANG DO Additional med instructions Please note your new insulin usage. You were given diabetes education Followup Plan Follow-up plan New x-rays will be ordered later on next week when he comes in for his postop appointment with me on Friday. Aug 07, 2016 f/u with Dr. Nicole Also note that he has written orders for home labs which will be done every Friday CBC, CMP, CRP and CPK and he will be checking these. 1 week f/u with PCP Dr. Woods for DM II Discharge Diet: Diabetic Discharge Activity: Limited until seen by PCP Patient Instructions His dressing will need to consist of packing, either plain Nu Gauze or iodoform , saline moistened gauze, Kerlix, Huan wrap, and the postoperative shoe. He can bear weight as tolerated, but physical work is contraindicated until full healing occurs. Time spent > 30 min Yamilka Jang DO Jul 30, 2016 08:17
[2016-07-30] MEDS: Insulin LISPRO Medium-Dose Scale SUBQ SCH ×2 (09:07→12:14)
--- NOTE | 2016-07-30 09:21 | NUR ---
ELI signed by pt
--- NOTE | 2016-07-30 09:56 | NUR ---
Social Work: Discharge D: EMR reviewed. Pt is on day 8 of hospitalization. Per ID notes on 07/29 and MD progress notes on 07/30, pt will discharge today. Pt will [place] [facility] [place] [place] 2 [place]. ID will assess pt in 2 weeks to determine ABX moving forward. KENDAL met with pt today and confirmed his discharge plan to return to [facility] 1[facility]/day for 2-weeks to receive IV Daptomycin. SW confirmed [place] [facility] [place] and PICC line has been placed. Pt was agreeable to plan. SW confirmed that pt will provide his own transport home via POV. SW does not anticipate any discharge needs at this time. A: Pt for whom IVABX (Daptomycin Q24) at [facility] [place] 2[place] has been deemed medically necessary. Pt who is independent at baseline. P: SW met with pt today and confirmed his discharge plan to return to [facility] 1x/day for 2-weeks to receive IV Daptomycin. Pt is agreeable to plan. KENDAL confirmed that pt will provide his own transport home today via POV. KENDAL does not anticipate any discharge needs at this time. GINA Dozier
[2016-07-30 12:00] VITALS: BP 112/68; PULSE 70; RESP 16; O2SAT 97
[2016-07-30] MEDS: DAPTOmycin Inj 1,000 MG in 0.9% Sodium Chloride 50 ML IV SCH (12:36)
--- NOTE | 2016-07-30 14:15 | NUR ---
DISCHARGE PATIENT DISCHARGE TO HOME VIA POV, AMBULATORY. DISCHARGE NOTES, INSTRUCTIONS AND HARD COPY OF PRESCRIPTION GIVEN AND WELL UNDERSTOOD BY PATIENT. ALL PERSONAL BELONGINGS TAKEN HOME WITH HIM. INSTRUCTED TO BE BACK TOMORROW AT [facility] [place]IOT[place] TREATMENT.
== END 2016-07-30 11:00 | disposition home or self-care (01) | DRG 908 ==
LOC: MOC 13:05
PROVIDERS: ADMIT Hospitalist; ATTEND Hospitalist
PROC: 0QPP04Z Removal of Internal Fixation Device from Left Metatarsal, Open Approach (ICD-10-PCS; 2016-07-24)
PROC: 0QBP0ZZ Excision of Left Metatarsal, Open Approach (ICD-10-PCS; principal; 2016-07-24 07:30)
DX: T85.79XA Infection and inflammatory reaction due to other internal prosthetic devices, implants and grafts, initial encounter (principal); M86.672 Other chronic osteomyelitis, left ankle and foot; M96.69 Fracture of other bone following insertion of orthopedic implant, joint prosthesis, or bone plate; L03.116 Cellulitis of left lower limb; E11.69 Type 2 diabetes mellitus with other specified complication; E11.65 Type 2 diabetes mellitus with hyperglycemia; E11.42 Type 2 diabetes mellitus with diabetic polyneuropathy; B99.9 Unspecified infectious disease; I10 Essential (primary) hypertension; E78.5 Hyperlipidemia, unspecified; Z86.14 Personal history of Methicillin resistant Staphylococcus aureus infection; Z22.322 Carrier or suspected carrier of Methicillin resistant Staphylococcus aureus